=== PATIENT | male | born 1990 | race Caucasian/White ===

== ENCOUNTER 2020-07-11 10:50 | Outpatient (REF) | payer OTHER, SELFPAY ==
[2020-07-11 11:31] LABS: MANUAL DIFF FLAG NO
[2020-07-11 11:39] LABS: Basophils Percent Auto 0.7 % (0-2); Eosinophils Absolute Auto 0.1 X10*3/uL (0.0-0.4); Eosinophils Percent Auto 2.4 % (0-4); Hematocrit 43.7 % (42-52); Hemoglobin 15.5 g/dl (14.0-18.0); Imm Gran Abs Auto 0.01 X10*3/uL (0.00-0.03); Imm Gran Pct Auto 0.2 % (0.0-0.4); Lymphocytes Absolute Auto 2.1 X10*3/uL (1.2-4.9); Lymphocytes Percent Auto 36.2 % (20-40); Mean Corpuscular HGB Conc 35.5 g/dl (31.0-36.0); Mean Corpuscular Hemoglobin 31.6 pg (27.0-33.0); Mean Corpuscular Volume 89.2 fL (80-98); Monocytes Absolute Auto 0.7 X10*3/uL (0.1-1.2); Monocytes Percent Auto 11.3 % (2-11); Neutrophils Absolute Auto 2.9 X10*3/uL (2.0-8.3); Neutrophils Percent Auto 49.2 % (45-73); Platelet Count 233 X10*3/uL (160-400); Red Cell Distribution Width 11.9 % (11.0-16.0); White Blood Count 5.9 X10*3/uL (4.8-10.8)
[2020-07-11 12:01] LABS: Glucose Urine UA NEG (NEG); Leukocyte Esterase Urine NEG (NEG); Nitrite Urine NEG (NEG); Specific Gravity - Urine 1.015 (1.005-1.025); Urine Blood NEG (NEG); Urine Ketones NEG (NEG); Urine Protein NEG (NEG-TRACE)
[2020-07-11 12:03] LABS: Appearance Urine CLOUDY; Color Urine YELLOW
[2020-07-11 12:40] LABS: Alanine Aminotransferase 25 U/L (0-40); Albumin Level 4.3 g/dL (3.5-5.0); Alkaline Phosphatase 65 U/L (39-117); Anion Gap 12 (12-20); Aspartate Amino Transferase 39 U/L (5-37); Bilirubin Total 0.9 mg/dL (0.0-1.0); Blood Urea Nitrogen 18 mg/dL (9-16); Calcium 9.1 mg/dL (8.4-10.2); Carbon Dioxide 30 mmol/L (22-29); Chloride 102 mmol/L (96-108); Cholesterol 152 mg/dL; Estimated Glomerular Filt Rate > 60; Glucose Random 82 mg/dL (60-115); Potassium 4.3 mmol/l (3.3-5.1); Sodium 140 mmol/L (135-145); Total Protein 6.8 g/dL (6.5-8.0)
[2020-07-11 13:26] LABS: TSH reflex Free T4 1.12 mIU/mL (0.32-4.0)
== END 2020-07-11 10:51 | disposition home or self-care (01) ==
LOC: HO.LAB 10:50
PROVIDERS: PCP Internal Medicine; Visit Provider Internal Medicine
DX: Z00.00 Encounter for general adult medical examination without abnormal findings (principal); E66.3 Overweight
CPT/HCPCS: 36415; 80053; 81003; 82465; 84443; 85025

== ENCOUNTER 2020-07-14 15:04 | Outpatient (REF) | payer OTHER, SELFPAY | END 2020-07-14 15:05 | disposition home or self-care (01) | LOC: HO.LAB 15:04 | PROVIDERS: Visit Provider Internal Medicine | DX: Z20.822 Contact with and (suspected) exposure to COVID-19 (principal) | CPT/HCPCS: 36415; C9803; U0003 ==

== ENCOUNTER → 2020-08-28 10:56 | Outpatient (BNVA) | payer OTHER, SELFPAY | PROVIDERS: PCP Internal Medicine; Visit Provider Internal Medicine | DX: M54.2 Cervicalgia (principal) | CPT/HCPCS: 99203 ==

== ENCOUNTER 2020-09-01 07:16 | Outpatient (REF) | payer OTHER, SELFPAY ==
--- NOTE | ~2020-09-01 | MR_ITS ---
EXAMINATION: MR CERVICAL SPINE WITHOUT CONTRAST CLINICAL INFORMATION: Lifting injury with left cervical scapular pain COMPARISON: None TECHNIQUE: MRI of the cervical spine was obtained using routine sequences without contrast. FINDINGS: VERTEBRAL BODIES AND PARASPINAL SOFT TISSUES: Straightening of the normal cervical lordosis is noted and may be secondary to positioning during the examination. No vertebral body compression deformities or focal marrow abnormalities are visualized. The craniocervical junction cerebellar tonsils are normal in duration. CERVICOMEDULLARY JUNCTION AND VISUALIZED POSTERIOR FOSSA: Normal. SPINAL LEVELS: C2-C3: Normal. Normal intervertebral discs. No central or foraminal stenoses. C3-C4: All normal. No central or foraminal stenoses. C4-C5: Normal. C5-C6: Normal. C6-C7: Normal. No central foraminal stenoses. Normal intervertebral disc. C7-T1: Normal. No cervical ribs are identified. The visualized neck demonstrates no gross inflammatory changes or lymphadenopathy. No prevertebral soft tissue inflammatory changes or fluid collections are noted. No facet arthropathic changes are identified. MR/MR cervical spine wo con IMPRESSION: Straightening of the normal cervical lordosis of the cervical spine; otherwise, normal unenhanced MRI of the cervical spine. No central or foraminal stenoses. Normal intervertebral discs.
== END 2020-09-01 07:17 | disposition home or self-care (01) ==
LOC: HO.MRI 07:16
PROVIDERS: Visit Provider Internal Medicine
DX: M54.2 Cervicalgia (principal); M25.519 Pain in unspecified shoulder
CPT/HCPCS: 72141

== ENCOUNTER → 2020-09-04 10:33 | Outpatient (BNVA) | payer OTHER, SELFPAY | PROVIDERS: PCP Internal Medicine; Visit Provider Internal Medicine | DX: S16.1XXA Strain of muscle, fascia and tendon at neck level, initial encounter (principal); X58.XXXA Exposure to other specified factors, initial encounter | CPT/HCPCS: 99214 ==

== ENCOUNTER 2021-04-13 21:32 | Emergency (ER) | payer OTHER, SELFPAY ==
[2021-04-13 21:36] VITALS: BP 141/92; PULSE 88; RESP 20; TEMP 36.8; O2SAT 98; BMI 27.6
[2021-04-14 01:16] LABS: Basophils Absolute Auto 0.1 X10*3/uL (0.0-0.2); Basophils Percent Auto 0.6 % (0-2); Eosinophils Absolute Auto 0.3 X10*3/uL (0.0-0.4); Eosinophils Percent Auto 3.8 % (0-4); Hematocrit 43.5 % (42-52); Hemoglobin 15.8 g/dl (14.0-18.0); Imm Gran Abs Auto 0.03 X10*3/uL (0.00-0.03); Imm Gran Pct Auto 0.4 % (0.0-0.4); Lymphocytes Absolute Auto 3.4 X10*3/uL (1.2-4.9); Lymphocytes Percent Auto 43.3 % (20-40); MANUAL DIFF FLAG NO; Mean Corpuscular HGB Conc 36.3 g/dl (31.0-36.0); Mean Corpuscular Volume 88.1 fL (80-98); Mean Platelet Volume 9.7 fL (9.4-12.4); Monocytes Absolute Auto 0.9 X10*3/uL (0.1-1.2); Monocytes Percent Auto 10.9 % (2-11); Neutrophils Absolute Auto 3.2 X10*3/uL (2.0-8.3); Platelet Count 244 X10*3/uL (160-400); Red Blood Count 4.94 X10*6/uL (4.60-5.80); White Blood Count 7.9 X10*3/uL (4.8-10.8)
--- NOTE | 2021-04-14 01:17 | ED_ITS ---
HPI - GI Bleed General Chief complaint: GI Bleed Stated complaint: Rectum bleeding Time Seen by Provider: 04/14/21 01:16 Source: patient Mode of arrival: ambulatory Limitations: no limitations History of Present Illness HPI Narrative: 31-year-old male came in for evaluation of rectal bleed. Patient after passed flatus on the toilet start have right-sided abdominal cramps followed by bright red blood per rectum bleeding. One time, resolved now, no chest pain or shortness of breath. No abdominal pain now. Related Data Home Medications Medication Instructions Recorded Confirmed No Known Home Meds 07/11/20 07/11/20 Allergies Allergy/AdvReac Type Severity Reaction Status Date / Time pollen extracts [POLLEN] Allergy Mild RUNNY Verified 07/11/20 10:24 NOSE, IRRITATED EYES, SNEEZING Review of Systems Review of Systems: All other systems are reviewed and are negative Constitutional: Reports as per HPI and Reports no additional constitutional complaints Eyes: Reports as per HPI and Reports no additional eye complaints Reports system reviewed and no additional complaints, except as documented Cardiovascular: Reports as per HPI and Reports no additional cardiovascular complaints Respiratory: Reports as per HPI and Reports no additional respiratory complaints Gastrointestinal: Reports as per HPI and Reports no additional gastrointestinal complaints Genitourinary: Reports no additional female genitourinary complaints Musculoskeletal: Reports no additional musculoskeletal complaints Skin/Breast: Reports system reviewed and no additional complaints, except as docu Psychiatric: Reports no additional psychiatric complaints Endocrine: Reports no additional endocrine complaints Hematologic/Lymphatic: Reports no additional hematologic/lymphatic complaints Allergic/Immunologic: Reports no additional allergic/immunologic complaints Reports system reviewed and no additional complaints, except as documented and Reports Abnormal speech present [facility] Past Medical History Medical History Overweight (BMI 25.0-29.9) Right knee pain Surgical History History of vasectomy Family History Family History Father Stroke Mother Cancer Brother In good health Son In good health Daughter In good health Social History Social History Alcohol intake: current Alcohol intake frequency: holidays/special occasions only Advance Directives: No Advance Directives Information Provided: No Physical Exam Vital Signs: Vital Signs: Last Vital Signs Temp 98.3 F 04/13/21 21:36 Pulse 88 04/13/21 21:36 Resp 20 04/13/21 21:36 BP 141/92 H 04/13/21 21:36 Pulse Ox 98 04/13/21 21:36 Body Mass Index 27.6 Vital signs have been reviewed as appeared to be correct. Blood pressure no rmal. Heart rate normal. Respiration rate normal. Temperature normal. Oxygen saturation normal. Appearance: Alert. Oriented X3. No acute distress. Head: Normal external exam. Normocephalic. Atraumatic. No Rivera signs noted. No raccoon eyes noted Eyes: PERRLA. EOMI. Conjunctiva and sclera normal. Eyelids normal. ENT: TM's Normal. Pharynx normal. Uvula midline. Moist mucous membranes. No trismus noted. No drooling noted. No muffled voice noted. Neck: Normal inspection. Neck supple. FROM. No adenopathy. Thyroid Normal. No meningeal signs. No neck mass noted. CVS: Normal heart rate and rhythm. Heart sound normal. No murmurs noted. Pulses normal throughout. Respiratory: No respiratory distress. Painless inspiration. Breath sounds normal. No wheezes/rales/rhonchi noted. Chest nontender. No accessory muscle usage noted or decreased air movement noted. Abdomen: Soft and nontender. Bowel sounds normal in all 4 quadrants. No distention noted. No organomegaly noted. No visible injury noted. Rectal exam: Bright red blood per rectum. Back: No CVA tenderness. Full range of motion noted. Skin: Skin warm and dry. Normal skin color. Normal skin turgor. No rashes/lesions/lacerations noted. Extremities: No lower extremity edema. Extremities exhibit normal range of motion. Extremities nontender. Neuro: Oriented X 3. Cranial nerve exam: II-XII are grossly intact No motor deficit. No sensory deficit. Reflexes normal. Course Course Course Narrative: A 31-year-old male came in for bright red blood per rectum. Patient hemodynamically stable, hemoglobin is stable, patient was offered admission but he declined because he had to travel for a wedding, patient was instructed if the bleeding gets Anwer seek immediate medical attention. MDM - GI Bleed Lab Data Result diagrams: 04/14/21 01:12 04/14/21 01:12 Labs: Lab Results 04/14/21 04/14/21 Range/Units 01:12 01:19 WBC 7.9 (4.8-10.8) X10*3/uL RBC 4.94 (4.60-5.80) X10*6/uL Hgb 15.8 (14.0-18.0) g/dl Hct 43.5 (42-52) % MCV 88.1 (80-98) fL MCH 32.0 (27.0-33.0) pg MCHC 36.3 H (31.0-36.0) g/dl RDW 12.0 (11.0-16.0) % Plt Count 244 (160-400) X10*3/uL MPV 9.7 (9.4-12.4) fL Immature Gran % (Auto) 0.4 (0.0-0.4) % Neut % (Auto) 41.0 L (45-73) % Lymph % (Auto) 43.3 H (20-40) % [place] % (Auto) 10.9 (2-11) % Eos % (Auto) 3.8 (0-4) % Baso % (Auto) 0.6 (0-2) % Lymph # (Auto) 3.4 (1.2-4.9) X10*3/uL [place] # (Auto) 0.9 (0.1-1.2) X10*3/uL Eos # (Auto) 0.3 (0.0-0.4) X10*3/uL Baso # (Auto) 0.1 (0.0-0.2) X10*3/uL Abs Immat Gran (auto) 0.03 (0.00-0.03) X10*3/uL Absolute Neuts (auto) 3.2 (2.0-8.3) X10*3/uL Absolute Nucleated RBC 0.000 (0.0-0.012) X10*3/uL Nucleated RBC % (auto) 0.0 (0.0-0.2) /100WBC Stool Occult Blood POSITIVE (NEGATIVE) Discharge Plan Discharge Clinical Impression: Bright red rectal bleeding Patient Disposition: Home, Self-Care Instructions: Rectal Bleeding (ED) Prescriptions: No Action No Known Home Meds RF: 0 Referrals: Pj Fleming MD [Primary Care Provider] - 2 days Sheryl Medina MD [Physician] - 2 days
[2021-04-14 01:22] LABS: OBS Int Ctl Valid YES; OBS1 POSITIVE (NEGATIVE)
--- NOTE | 2021-04-14 01:38 | P.HPHOSP_ITS ---
History of Present Illness Date of Service: 04/14/21 Chief Complaint: Bright red blood per rectum 31-year-old male with no significant past medical history presented to the hospital with a chief complaint of bright red blood per rectum. Patient reported that he was sitting in the toilet and suddenly had a gush of blood; denies any nausea or vomiting. Followed by he felt abdominal cramps which lasted for few minutes and subsequently subsided. Denies taking [id number] pain medications. Denies any alcohol use. Denies any prior history of bleeds. Denies any history of hemorrhoids. Denies any chest pain palpitations lightheadedness or dizziness. Denies any urinary symptoms. Review of all other systems is negative except mentioned above ER course: Per ER team patient had another episode of bright red blood per rectum in the ER. Vitals stable; hemoglobin stable at 15; admitted to the hospital for fur ther management. PENDING SALE TO [facility] Medical History Overweight (BMI 25.0-29.9) Right knee pain Family History Father Stroke Mother Cancer Brother In good health Son In good health Daughter In good health Pertinent family history: As mentioned above Surgical History History of vasectomy Social History Alcohol intake: current Alcohol intake frequency: holidays/special occasions only Advance Directives: No Advance Directives Information Provided: No Meds Allergies Allergy/AdvReac Type Severity Reaction Status Date / Time pollen extracts [POLLEN] Allergy Mild RUNNY Verified 07/11/20 10:24 NOSE, IRRITATED EYES, SNEEZING Home Medications Medication Instructions Recorded Confirmed Last Taken Type No Known Home Meds 07/11/20 07/11/20 Unknown History Physical Exam Vital Signs and Narrative: Vital Signs: Last Vital Signs Temp 98.3 F 04/13/21 21:36 Pulse 88 04/13/21 21:36 Resp 20 04/13/21 21:36 BP 141/92 H 04/13/21 21:36 Pulse Ox 98 04/13/21 21:36 Body Mass Index 27.6 Gen: Appears be in no acute distress HEENT: NCAT, Moist mucosa. Pulmonary: Vesicular breath sounds, fair air entry CVS: Normal S1-S2 Abdomen: BS+, Soft, Nontender Extremities: Warm well perfused Neuro: Alert and awake. Results Labs CBC and Chem 7: 04/14/21 01:12 04/14/21 01:12 Labs: Laboratory Results - last 24 hr 04/14/21 04/14/21 01:12 01:19 MCV 88.1 MCH 32.0 MCHC 36.3 H RDW 12.0 Plt Count 244 MPV 9.7 Immature Gran % (Auto) 0.4 Neut % (Auto) 41.0 L Lymph % (Auto) 43.3 H [place] % (Auto) 10.9 Eos % (Auto) 3.8 Baso % (Auto) 0.6 Lymph # (Auto) 3.4 [place] # (Auto) 0.9 Eos # (Auto) 0.3 Baso # (Auto) 0.1 Abs Immat Gran (auto) 0.03 Absolute Neuts (auto) 3.2 Absolute Nucleated RBC 0.000 Nucleated RBC % (auto) 0.0 Stool Occult Blood POSITIVE Assessment and Plan (1) BRBPR (bright red blood per rectum): Status: Acute 31-year-old male with no significant past medical history presented to the hospital with a chief complaint of bright red blood per rectum. Bright red blood per rectum: Per ER physician on rectal examination patient did not have any hemorrhoids. Noted bright red blood in the rectal wall. Serial H&H IV PPI GI consult NPO Gentle IV fluids DVT prophylaxis: SCD boots Code status: Full code Quality Stroke Does the patient have a stroke diagnosis?: No VTE Prior VTE?: No VTE Risk Level:: Medical - low VTE Device Contraindication: N/A - Device Ordered VTE Drug Contraindication: Treatment Not Indicated
[2021-04-14 01:53] VITALS: BP 138/91; PULSE 75; RESP 16; TEMP 36.9; O2SAT 95
[2021-04-14 01:55] LABS: Alanine Aminotransferase 25 U/L (0-40); Albumin Level 4.4 g/dL (3.5-5.0); Alkaline Phosphatase 78 U/L (39-117); Anion Gap 13 (12-20); Aspartate Amino Transferase 38 U/L (5-37); Bilirubin Total 0.5 mg/dL (0.0-1.0); Blood Urea Nitrogen 16 mg/dL (9-16); Calcium 9.4 mg/dL (8.4-10.2); Carbon Dioxide 25 mmol/L (22-29); Chloride 104 mmol/L (96-108); Creatinine Clr Calc Pharmacy 108.2; Estimated Glomerular Filt Rate > 60; Glucose Random 102 mg/dL (60-115); Potassium 4.1 mmol/L (3.3-5.1); Sodium 138 mmol/L (135-145); Total Protein 7.5 g/dL (6.5-8.0)
--- NOTE | 2021-04-14 03:42 | PM.EVENT ---
Event Note Date of Service: 04/14/21 Event Note: ER wanted to admit the patient. Followed by the patient does not want to stay in the hospital and left against medical advice. ER physician has signed to AMA.
== END 2021-04-14 02:03 | disposition home or self-care (01) ==
PROVIDERS: Emergency Provider Emergency Medicine; PCP Internal Medicine
DX: K62.5 Hemorrhage of anus and rectum (principal)
CPT/HCPCS: 36415; 80053; 82272; 85025; 99283

== ENCOUNTER 2021-05-02 18:03 | Emergency (ER) | payer OTHER, SELFPAY ==
--- NOTE | ~2021-05-02 | CT_ITS ---
EXAMINATION: CT ABDOMEN AND PELVIS WITHOUT AND WITH CONTRAST CLINICAL INFORMATION: Lower GI bleed COMPARISON: CTA chest abdomen pelvis 11/29/2008 TECHNIQUE: Initially, noncontrast CT scan was performed through the entire abdomen and pelvis. Next, volumetric imaging was performed from the superior aspect of the liver through the pubic symphysis following administration of 80 mL of Omnipaque 350. Sagittal and coronal reformatted images were obtained on the technologist's workstation. This CT examination was performed using dose optimization techniques as appropriate, variously including the following: *Automated exposure control *Adjustment of mA and/or kV according to patient size (this includes techniques or standardized protocols for targeted exams where dose is matched to indication/reason for exam; i.e. extremities or head) *Use of iterative reconstruction technique DLP: 1456 mGy-cm FINDINGS: LUNG BASES: The visualized lung bases are unremarkable. LIVER, GALLBLADDER, AND BILIARY TREE: The liver is normal in size, shape, and attenuation. No focal hepatic lesion or biliary ductal dilatation is present. The gallbladder is unremarkable with no evidence of radiopaque gallstones, gallbladder wall thickening, or obvious pericholecystic inflammatory changes. PANCREAS: Unremarkable. SPLEEN: Unremarkable. ADRENAL GLANDS: Unremarkable. KIDNEYS AND URETERS: The kidneys are normal in size, shape, and attenuation. No hydronephrosis, hydroureter, or calculi seen. No perinephric stranding. BLADDER: Unremarkable. GASTROINTESTINAL TRACT: Scattered colonic diverticula are seen without diverticulitis. The small and large bowel are otherwise unremarkable. The appendix is unremarkable. There is no evidence of a GI bleed and no extravasation of contrast is seen. ABDOMINAL WALL: No significant hernia is appreciated. Tiny periumbilical hernia seen containing only fat. LYMPH NODES: Normal. VASCULAR: Unremarkable. PELVIC VISCERA: Prostate and seminal vesicles appear normal OSSEOUS STRUCTURES: Unremarkable. CT/CT gi bleed abd pel wo/w con IMPRESSION: 1. No evidence of active GI bleed. 2. Incidental note made of colonic diverticula without diverticulitis.
[2021-05-02 18:41] VITALS: BP 147/84; PULSE 87; RESP 18; TEMP 37.3; O2SAT 98; BMI 28.2
[2021-05-02 19:46] VITALS: BP 136/79; PULSE 84; RESP 18; TEMP 36.1; O2SAT 98
[2021-05-02 19:58] LABS: MANUAL DIFF FLAG NO
[2021-05-02 19:59] LABS: Basophils Percent Auto 0.4 % (0-2); Eosinophils Absolute Auto 0.1 X10*3/uL (0.0-0.4); Eosinophils Percent Auto 1.7 % (0-4); Hematocrit 40.7 % (42.0-52.0); Imm Gran Abs Auto 0.02 X10*3/uL (0.00-0.03); Imm Gran Pct Auto 0.2 % (0.0-0.4); Lymphocytes Absolute Auto 2.1 X10*3/uL (1.2-4.9); Mean Corpuscular HGB Conc 36.9 g/dl (31.0-36.0); Mean Corpuscular Hemoglobin 31.9 pg (27.0-33.0); Mean Corpuscular Volume 86.6 fL (80.0-98.0); Mean Platelet Volume 9.2 fL (9.4-12.4); Monocytes Absolute Auto 0.8 X10*3/uL (0.1-1.2); Monocytes Percent Auto 9.4 % (2-11); Neutrophils Percent Auto 62.3 % (45-73); Platelet Count 213 X10*3/uL (160-400); Red Cell Distribution Width 11.9 % (11.0-16.0)
--- NOTE | 2021-05-02 20:01 | ED.GIBLEED ---
HPI - GI Bleed General Chief complaint: GI Bleed Stated complaint: gi bleed Time Seen by Provider: 05/02/21 19:38 Source: patient Mode of arrival: ambulatory Limitations: no limitations History of Present Illness HPI Narrative: 31-year-old male presents to the ER for evaluation of blood in his stool that he noticed today. He reports he has brown stool that is streaked with blood about 4 5 episodes today. His 1st bowel movement of the day was normal with no blood but he developed the bleeding later in the day. He also had some associated lower abdominal cramping that is now resolved. He has had no nausea or vomiting. He denies any melena. He reports a history of similar episodes at the end of March when he was seen here. He has been unable to follow-up with GI as recommended due to his heavy work schedule. 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 He denies any sick contacts or potential food-borne illness exposure. He denies any fever or chills. MD complaint: blood streaked stool Onset (ago): day(s) Pain Consistency: intermittent Severity: moderate Relieving factors: bowel movement Exacerbating factors: none Context: history of GI bleed Associated symptoms: abdominal pain Treatments Prior to Arrival: none Related Data Home Medications Medication Instructions Recorded Confirmed No Known Home Meds 07/11/20 07/11/20 Allergies Allergy/AdvReac Type Severity Reaction Status Date / Time pollen extracts [POLLEN] Allergy Mild RUNNY Verified 07/11/20 10:24 NOSE, IRRITATED EYES, SNEEZING Review of Systems Review of Systems: Constitutional: No Fever, No Chills ENT/Mouth: No sore throat, No Rhinorrhea, No Swallowing Difficulty Cardiovascular: No Chest Pain, No SOB, No Orthopnea, No Edema Respiratory: No Cough, No Sputum, No Wheezing, No dyspnea Gastrointestinal: No Nausea, No Vomiting, No Diarrhea, + abdominal Pain, + Hematochezia, No Melena Genitourinary: No Dysuria, No Urinary Frequency, No Hematuria Musculoskeletal: No joint pain, No Myalgias Skin: No Skin Lesions, No rash Neuro: No Weakness, No Numbness, No Dizziness, No Headache Psych: + Anxiety/Panic, No Depression Heme/Lymph: No Bruising, No Lymphadenopathy Endocrine: No Polyuria, No Polydipsia PMFSH Past Medical History Medical History Overweight (BMI 25.0-29.9) Right knee pain Surgical History History of vasectomy Family History Family History Father Stroke Mother Cancer Brother In good health Son In good health Daughter In good health Social History Social History Alcohol intake: current Alcohol intake frequency: holidays/special occasions only Advance Directives: No Advance Directives Information Provided: Yes Physical Exam Vital Signs: Vital Signs: Last Vital Signs Temp 97.8 F 05/02/21 22:13 Pulse 66 05/02/21 22:13 Resp 16 05/02/21 22:13 BP 131/68 05/02/21 22:13 Pulse Ox 98 05/02/21 22:13 Body Mass Index 28.2 Appearance: Alert. Oriented X3. No acute distress. Eyes: Pupils equal, round and reactive to light. ENT: Pharynx normal. Neck: Normal inspection. Neck supple. CVS: Normal heart rate and rhythm. Pulses normal. Respiratory: No respiratory distress. Breath sounds normal. Abdomen: Soft and nontender. +BS x4 PHILIP: Normal external inspection, normal rectal tone, no palpable hemorrhoids, small amount of light brown stool on glove. Skin: Skin warm and dry. Normal skin color. Normal skin turgor. No rashes. Extremities: No lower extremity edema. Neuro: Oriented X 3. No motor deficit. No sensory deficit. Course Course Course Narrative: 31-year-old male presenting to the ER for evaluation blood-streaked stool that started today. He reports 4-5 episodes but denies any lightheadedness, dizziness, chest pain, shortness of breath. He had a history of a similar episode almost a month ago. He is not tachycardic and his abdominal exam is benign. He is not on anticoagulation. He is in a alcohol use, NSAID use. Clinical presentation is consistent with a lower GI bleed. Will get repeat blood workup and plan for CT scan of the abdomen with GI bleed protocol for further evaluation. He reports he just had 1 bloody BM in the bathroom. No associated dizziness. Reevaluation(s) Reevaluation #1: H&H is stable from prior. He has had no further bloody bowel movements in the 4 hours he has been in the emergency department. He feels well. He is eating popcorn with his girlfriend. His CT scan did not show any active bleeding. It did show colonic diverticulosis. We discussed the diagnosis and management. We discussed need to follow up with GI doctor. He is comfortable with discharge home with supportive care and planned follow-up with GI. He plans to return back to the ER if any bleeding worsens or if he develops signs or symptoms of acute blood loss anemia. Stable for DC home MDM - GI Bleed Lab Data Result diagrams: 05/02/21 19:51 05/02/21 19:51 Labs: Lab Results 05/02/21 05/02/21 05/02/21 Range/Units 19:51 19:51 19:51 WBC 8.0 (4.8-10.8) X10*3/uL RBC 4.70 (4.60-5.80) X10*6/uL Hgb 15.0 (14.0-18.0) g/dl Hct 40.7 L (42.0-52.0) % MCV 86.6 (80.0-98.0) fL MCH 31.9 (27.0-33.0) pg MCHC 36.9 H (31.0-36.0) g/dl RDW 11.9 (11.0-16.0) % Plt Count 213 (160-400) X10*3/uL MPV 9.2 L (9.4-12.4) fL Immature Gran % (Auto) 0.2 (0.0-0.4) % Neut % (Auto) 62.3 (45-73) % Lymph % (Auto) 26.0 (20-40) % [place] % (Auto) 9.4 (2-11) % Eos % (Auto) 1.7 (0-4) % Baso % (Auto) 0.4 (0-2) % Lymph # (Auto) 2.1 (1.2-4.9) X10*3/uL [place] # (Auto) 0.8 (0.1-1.2) X10*3/uL Eos # (Auto) 0.1 (0.0-0.4) X10*3/uL Baso # (Auto) 0.0 (0.0-0.2) X10*3/uL Abs Immat Gran (auto) 0.02 (0.00-0.03) X10*3/uL Absolute Neuts (auto) 5.0 (2.0-8.3) x10*3/uL Absolute Nucleated RBC 0.000 (0.0-0.012) X10*3/uL Nucleated RBC % (auto) 0.0 (0.0-0.2) /100WBC PT 11.7 (9.9-13.0) SEC INR 1.0 (0.9-1.1) APTT 29.2 (24.1-38.0) SEC Sodium 138 (135-145) mmol/L Potassium 3.8 (3.3-5.1) mmol/L Chloride 105 (96-108) mmol/L Carbon Dioxide 26 (22-29) mmol/L Anion Gap 11 L (12-20) BUN 15 (9-16) mg/dL Creatinine 1.20 (0.5-1.4) mg/dL Estim Creat Clear Calc 113.6 Estimated GFR > 60 Random Glucose 93 (60-115) mg/dL Calcium 9.1 (8.4-10.2) mg/dL Magnesium 2.0 (1.6-2.6) mg/dL Total Bilirubin 0.6 (0.0-1.0) mg/dL Direct Bilirubin 0.2 (0.0-0.5) mg/dL AST 39 H (5-37) U/L ALT 26 (0-40) U/L Alkaline Phosphatase 72 (39-117) U/L Total Protein 6.7 (6.5-8.0) g/dL Albumin 4.2 (3.5-5.0) g/dL Urine Color Urine Appearance Urine pH (5.0-8.0) Ur Specific [place] (1.005-1.025) Urine Protein (NEG-TRACE) MG/DL Urine Glucose (UA) (NEG) MG/DL Urine Ketones (NEG) MG/DL Urine Blood (NEG) Urine Nitrite (NEG) Ur Leukocyte Esterase (NEG) Stool Occult Blood (NEGATIVE) COVID-19 ([facility]) (Negative) COVID-19 Clin Com 05/02/21 05/02/21 05/02/21 Range/Units 19:51 20:00 20:17 WBC (4.8-10.8) X10*3/uL RBC (4.60-5.80) X10*6/uL Hgb (14.0-18.0) g/dl Hct (42.0-52.0) % MCV (80.0-98.0) fL MCH (27.0-33.0) pg MCHC (31.0-36.0) g/dl RDW (11.0-16.0) % Plt Count (160-400) X10*3/uL MPV (9.4-12.4) fL Immature Gran % (Auto) (0.0-0.4) % Neut % (Auto) (45-73) % Lymph % (Auto) (20-40) % [place] % (Auto) (2-11) % Eos % (Auto) (0-4) % Baso % (Auto) (0-2) % Lymph # (Auto) (1.2-4.9) X10*3/uL [place] # (Auto) (0.1-1.2) X10*3/uL Eos # (Auto) (0.0-0.4) X10*3/uL Baso # (Auto) (0.0-0.2) X10*3/uL Abs Immat Gran (auto) (0.00-0.03) X10*3/uL Absolute Neuts (auto) (2.0-8.3) x10*3/uL Absolute Nucleated RBC (0.0-0.012) X10*3/uL Nucleated RBC % (auto) (0.0-0.2) /100WBC PT (9.9-13.0) SEC INR (0.9-1.1) APTT (24.1-38.0) SEC Sodium (135-145) mmol/L Potassium (3.3-5.1) mmol/L Chloride (96-108) mmol/L Carbon Dioxide (22-29) mmol/L Anion Gap (12-20) BUN (9-16) mg/dL Creatinine (0.5-1.4) mg/dL Estim Creat Clear Calc Estimated GFR Random Glucose (60-115) mg/dL Calcium (8.4-10.2) mg/dL Magnesium (1.6-2.6) mg/dL Total Bilirubin (0.0-1.0) mg/dL Direct Bilirubin (0.0-0.5) mg/dL AST (5-37) U/L ALT (0-40) U/L Alkaline Phosphatase (39-117) U/L Total Protein (6.5-8.0) g/dL Albumin (3.5-5.0) g/dL Urine Color STRAW Urine Appearance CLEAR Urine pH 7.0 (5.0-8.0) Ur Specific [place] <= 1.005 (1.005-1.025) Urine Protein NEG (NEG-TRACE) MG/DL Urine Glucose (UA) NEG (NEG) MG/DL Urine Ketones NEG (NEG) MG/DL Urine Blood NEG (NEG) Urine Nitrite NEG (NEG) Ur Leukocyte Esterase NEG (NEG) Stool Occult Blood POSITIVE (NEGATIVE) COVID-19 ([place]) Negative (Negative) COVID-19 Clin Com See Note Critical Care Time Critical Care Time Critical Care Time: No Discharge Plan Discharge Clinical Impression: Acute lower GI bleeding, Diverticulosis Patient Disposition: Home, Self-Care Instructions: Gastrointestinal Bleeding (ED), Diverticulosis (ED) Additional Instructions: Your lab workup today showed stable blood counts Your CT scan showed diverticulosis of your colon, this is most likely what is causing the bleeding. It is usually self-limited. You need to follow-up with GI, name and number below. Stick to a bland diet. Rest and stay hydrated. If you develop worsening bleeding, or develop abdominal pain, lightheadedness, dizziness, shortness of breath, chest pain or any other concerning symptoms come back to the ER for further evaluation. Prescriptions: No Action No Known Home Meds RF: 0 Referrals: Chencho Helton [Physician] - 2 days (LGIB, diverticulosis) Stand Alone Forms: Work/School Release Discharge Date/Time: 05/02/21 22:50
[2021-05-02 20:06] LABS: Prothrombin Time 11.7 SEC (9.9-13.0)
[2021-05-02 20:08] LABS: Partial Thromboplastin Time 29.2 SEC (24.1-38.0)
[2021-05-02 20:13] LABS: COVID-19 Test Negative (Negative)
[2021-05-02 20:15] LABS: Alanine Aminotransferase 26 U/L (0-40); Albumin Level 4.2 g/dL (3.5-5.0); Alkaline Phosphatase 72 U/L (39-117); Anion Gap 11 (12-20); Aspartate Amino Transferase 39 U/L (5-37); Bilirubin Direct 0.2 mg/dL (0.0-0.5); Bilirubin Total 0.6 mg/dL (0.0-1.0); Blood Urea Nitrogen 15 mg/dL (9-16); Calcium 9.1 mg/dL (8.4-10.2); Carbon Dioxide 26 mmol/L (22-29); Chloride 105 mmol/L (96-108); Creatinine Clr Calc Pharmacy 113.6; Estimated Glomerular Filt Rate > 60; Glucose Random 93 mg/dL (60-115); Potassium 3.8 mmol/L (3.3-5.1); Sodium 138 mmol/L (135-145); Total Protein 6.7 g/dL (6.5-8.0)
[2021-05-02 20:15] LABS: Appearance Urine CLEAR; Color Urine STRAW; Glucose Urine UA NEG (NEG); Leukocyte Esterase Urine NEG (NEG); Nitrite Urine NEG (NEG); Specific Gravity - Urine <= 1.005 (1.005-1.025); Urine Blood NEG (NEG); Urine Ketones NEG (NEG); Urine Protein NEG (NEG-TRACE)
[2021-05-02 20:27] LABS: OBS Int Ctl Valid YES; OBS1 POSITIVE (NEGATIVE)
[2021-05-02] MEDS: iohexoL 350 MG/ML 100 ML INFUS..BTL IV (21:30)
[2021-05-02 22:13] VITALS: BP 131/68; PULSE 66; RESP 16; TEMP 36.6; O2SAT 98
== END 2021-05-02 22:50 | disposition home or self-care (01) ==
PROVIDERS: Physician Assistant; Emergency Provider Emergency Medicine; PCP Internal Medicine
DX: K57.31 Diverticulosis of large intestine without perforation or abscess with bleeding (principal); Z20.822 Contact with and (suspected) exposure to COVID-19
CPT/HCPCS: 36415; 74178; 80048; 80076; 81003; 82272; 83735; 85025; 85610; 85730; 87635; 99283; 99284; Q9967

== ENCOUNTER → 2021-05-15 12:00 | Outpatient (BNVA) | payer OTHER, SELFPAY | PROVIDERS: PCP Internal Medicine; Referring Provider Internal Medicine; Visit Provider Internal Medicine Gastroenterology ==

== ENCOUNTER 2021-06-07 10:32 | Day surgery (SDC) | payer OTHER, SELFPAY ==
--- NOTE | 2021-06-06 10:31 | HO.ANESPROP2 ---
Documented by User: Aleshia Flowers NP 06/06/21 10:32 HPI - Anesthesia Eval Consult details Narrative: 31yo M for Colonoscopy [facility] Active Problems Active Problems: All Active Problems (Updated 05/03/21 @ 00:03 by Bulmaro Esteban) Recurrent gastrointestinal hemorrhage (Acute) BRBPR (bright red blood per rectum) (Acute) Right knee pain (Acute) Overweight (BMI 25.0-29.9) (Acute) Annual physical exam (Acute) Past Medical History Medical History Overweight (BMI 25.0-29.9) Right knee pain Family History Family History Father Stroke Mother Cancer Brother In good health Son In good health Daughter In good health Surgical History Surgical History History of vasectomy Social History Social History Alcohol intake: current Alcohol intake frequency: holidays/special occasions only Patient Tobacco Use Status: Former Tobacco user Use of substances other than those prescribed or required for medical reasons: No Are you DNR?: No Advance Directives: No Advance Directives Information Provided: Yes Meds Allergies Allergy/AdvReac Type Severity Reaction Status Date / Time pollen extracts [POLLEN] Allergy Mild RUNNY Verified 05/31/21 14:53 NOSE, IRRITATED EYES, SNEEZING Exam Exam Date and Time: June 06, 2021 1031 Pertinent Lab Results Pertinent Lab Results: Laboratory Tests 05/02/21 05/02/21 19:51 19:51 WBC 8.0 Hgb 15.0 Hct 40.7 L Plt Count 213 Sodium 138 Potassium 3.8 Chloride 105 Carbon Dioxide 26 BUN 15 Creatinine 1.20 Assessment and Plan Assessment Anesthesia Assessment: Chart Reviewed Documented by User: Delonte Early 06/07/21 12:30 [facility] Past Medical History Medical History Overweight (BMI 25.0-29.9) Right knee pain Functional capacity: independent ambulation Family History Family History Father Stroke Mother Cancer Brother In good health Son In good health Daughter In good health Family history of problems with anesthesia: Unobtainable Surgical History Surgical History History of vasectomy History of Problems with Anesthesia: No Social History Social History Alcohol intake: current Alcohol intake frequency: holidays/special occasions only Patient Tobacco Use Status: Former Tobacco user Use of substances other than those prescribed or required for medical reasons: No Are you DNR?: No Advance Directives: No Advance Directives Information Provided: Yes Meds Allergies Allergy/AdvReac Type Severity Reaction Status Date / Time pollen extracts [POLLEN] Allergy Mild RUNNY Verified 05/31/21 14:53 NOSE, IRRITATED EYES, SNEEZING Exam Airway Mallampati Class: II TM Dist: >3cm Neck ROM: Full Loose/Missing/Broken Teeth: Yes (Fillings ) Heart: rrr Lungs: bl breath sounds Assessment and Plan Final Anesthetic Review Family History of Problems with Anesthesia: Unobtainable History of Problems with Anesthesia: No NPO: Yes ASA Class: I Final Preanesthetic Review: Anes Risks/Benef Reviewed Patient Risk: Intermediate Procedure Risk: Intermediate Anesthetic Plan Anesthetic Plan: MAC: Disposition: Standard PACU
[2021-06-07 11:13] VITALS: BP 128/78; PULSE 65; RESP 16; TEMP 36.6; O2SAT 97; BMI 27.6
--- NOTE | 2021-06-07 12:59 | P.BOP_ITS ---
Brief Operative Note Date of Service: 06/07/21 Pre-op diagnosis: rectal bleeding Post-op diagnosis: same Procedure: see op note Surgeon: Sheryl Medina MD Anesthesia: MAC Was an [employer] Observer used for this Procedure?: No Estimated blood loss (mL): 0 Condition: stable Disposition: PACU
--- NOTE | 2021-06-07 12:59 | MHC.SHP ---
Pre-Procedural Eval Section A Date of Service: 06/07/21 The patient is an INPATIENT: No The History & Physical has been completed within 30 days and I have reviewed it.: Yes Section B Chief Complaint: Gastrointestinal hemorrhage Allergies: Allergies Allergy/AdvReac Type Severity Reaction Status Date / Time pollen extracts [POLLEN] Allergy Mild RUNNY Verified 05/31/21 14:53 NOSE, IRRITATED EYES, SNEEZING Plan Diagnosis/Plan: Unchanged I have reviewed the history and physical and performed a pertinent physical examination on my patient. No changes have occurred unless specified.
--- NOTE | 2021-06-07 13:00 | W.PM.OPN ---
Operative Note Operative Note Date of Service: 06/07/21 Narrative: Operative Information Procedure Description: Colonoscopy COLONOSCOPY Instrument: Olympus variable stiffness pediatric scope 190L Colonoscopy Monitoring: Vital signs and clinical assessment, continuous EKG monitoring, Pulse oximetry, Carbon Dioxide monitoring and blood pressure monitoring were done throughout the procedure. Colon withdrawal time was 8 minutes. Procedure: The patient was placed in the left lateral decubitis position and pre-procedure medications were administered. After a digital rectal examination of the ano-rectum, the video colonoscope was inserted into the rectum and advanced through the colon to the cecum/TI. The colonoscope was slowly withdrawn in a retrograde panoramic fashion and the colon mucosa was carefully examined including a retroflexed view of the rectum. Findings and interventions are described below. Procedure Difficulty: easy Findings: Terminal Ileum-normal Cecum:normal Ascending Colon: normal Transverse Colon -normal Descending Colon:normal Sigmoid Colon: normal Rectum: Retroflexion with small internal hemorrhoids, grade I Anorectum - normal Colon preparation: [place] Bowel Preparation Scale Right colon; 3 Transverse colon: 3 Left colon; 3 (0 = Unprepared colon segment with mucosa not seen due to solid stool that cannot be cleared. 1 = Portion of mucosa of the colon segment seen, but other areas of the colon segment not well seen due to staining, residual stool and/or opaque liquid. 2 = Minor amount of residual staining, small fragments of stool and/or opaque liquid, but mucosa of colon segment seen well. 3 = Entire mucosa of colon segment seen well with no residual staining, small fragments of stool or opaque liquid) Impression and Post Procedure Diagnosis: internal hemorrhoids Plan: High fiber diet leaflet Avoid straining at stool, epsom salts and sitz bath, anusol supps or cream Repeat Colonoscopy aged 45 or earlier if clinically indicated Above findings were reviewed with the patient and relevant handouts were provided if indicated.
[2021-06-07 13:40] VITALS: BP 113/66; PULSE 75; RESP 16; TEMP 36.3
[2021-06-07 13:54] VITALS: BP 118/76; PULSE 69; RESP 16; O2SAT 97
== END 2021-06-07 14:19 | disposition home or self-care (01) ==
PROVIDERS: PCP Internal Medicine; Visit Provider Internal Medicine Gastroenterology
PROC: 0DJD8ZZ Inspection of Lower Intestinal Tract, Via Natural or Artificial Opening Endoscopic (ICD-10-PCS; CPT 45378; principal; 2021-06-07 12:10)
DX: K62.5 Hemorrhage of anus and rectum (principal); K57.30 Diverticulosis of large intestine without perforation or abscess without bleeding; K64.0 First degree hemorrhoids
CPT/HCPCS: 45378

== ENCOUNTER 2021-07-09 07:50 | Outpatient (REF) | payer OTHER, SELFPAY ==
[2021-07-09 09:37] LABS: Binax Internal Control QC Valid; Binax Now Covid-19 Ag Negative (Negative)
== END 2021-07-09 07:51 | disposition home or self-care (01) ==
LOC: HO.LAB 07:50
PROVIDERS: Visit Provider Internal Medicine
DX: Z20.822 Contact with and (suspected) exposure to COVID-19 (principal)
CPT/HCPCS: C9803

== ENCOUNTER 2021-07-10 10:03 | Outpatient (REF) | payer OTHER, SELFPAY ==
[2021-07-11 14:57] LABS: H Pylori Breath Test Negative (Negative)
== END 2021-07-10 10:04 | disposition home or self-care (01) ==
LOC: HO.LNP 10:03
PROVIDERS: PCP Internal Medicine; Referring Provider Internal Medicine; Visit Provider Internal Medicine Gastroenterology
DX: R12 Heartburn (principal); Z79.899 Other long term (current) drug therapy
CPT/HCPCS: 83013

== ENCOUNTER 2022-02-11 09:05 | Emergency (ER) | payer OTHER, SELFPAY ==
--- NOTE | ~2022-02-11 | US_ITS ---
EXAMINATION: US VENOUS ULTRASOUND WITH DOPPLER LOWER EXTREMITY, LEFT CLINICAL INFORMATION: Left calf pain. COMPARISON: None TECHNIQUE: Ultrasound of the deep veins is performed from the hip to the calf with compression sonography and color and pulse Doppler assessment. Spectral analysis with color-flow imaging is performed. FINDINGS: There is normal venous compression and respiratory variation and augmented flow. The visualized common femoral vein, superficial femoral vein, profunda femoral vein, popliteal vein, and the trifurcation region shows no evidence of deep venous thrombosis. There is no significant popliteal fossa cyst. If the patient's symptoms persist, followup ultrasound in 5 days 7 days might be of value to exclude proximal propagation from a non-visualized calf vein. US/US venous duplex LE LT IMPRESSION: No DVT demonstrated in the left lower extremity.
--- NOTE | 2022-02-11 09:24 | ED.GENADULT ---
HPI - General Adult General Chief complaint: Extremity Problem Stated complaint: L calf pain/R hamstring pain Time Seen by Provider: 02/11/22 09:24 Source: patient Mode of arrival: ambulatory Limitations: no limitations History of Present Illness HPI narrative: Patient is a 32 year old male presenting to the emergency department today with left calf pain and right thigh pain. Patient states that over the last 2 weeks he has been having random lower extremity pain that seems to come on out of nowhere. Patient states that he had COVID-19 in December but it was a mild case. Patient states that he also had a rash on his lower legs that looked like he had been bitten by fleas but then it quickly went away. Patient states that he has had lab work done and a tick panel that is still pending but the rest of his lab work was unremarkable. Patient states that he works for the [employer] department and when he goes up a flight of stairs, he feels very winded. Patient denies any dizziness, lightheadedness, abdominal pain, nausea, vomiting, fever, chills, blurry vision, double vision, loss of vision, chest pain, difficulty breathing, shortness of breath, back pain, night sweats, pain with urination, increased urinary frequency, increased urinary urgency, blood in his urine or stool, syncope or a near syncopal episode, recent trauma or falls, bowel incontinence, bladder incontinence, bowel retention, bladder retention, or any other complaints at this time. Onset (ago): week(s) (2) Location: lower extremity (left calf, right thigh) Severity: mild Severity scale (1-10): 2 Quality: aching Pain Consistency: intermittent Relieving factors: none Exacerbating factors: none Associated symptoms: rash (came on and resolved) Treatments prior to arrival: none Related Data Home Medications Medication Instructions Recorded Confirmed multivitamin 1 tab PO DAILY 07/16/21 07/16/21 Previous Rx's Medication Instructions Recorded pantoprazole 40 mg tablet,delayed 40 mg PO DAILY #60 tabs 01/28/22 release Allergies Allergy/AdvReac Type Severity Reaction Status Date / Time pollen extracts [POLLEN] Allergy Mild RUNNY Verified 07/16/21 10:44 NOSE, IRRITATED EYES, SNEEZING Review of Systems Constitutional: Constitutional: Reports no additional constitutional complaints, Denies chills, Denies fever(s) and Denies night sweats Eyes: Eyes: Reports no additional eye complaints, Denies blurry vision, Denies change in vision, Denies diplopia, Denies eye discharge, Denies loss of vision and Denies eye pain ENT: Denies dizziness Cardiovascular: Cardiovascular: Reports no additional cardiovascular complaints, Denies chest pain, Denies lightheadedness, Denies Loss of Consciousness and Denies dyspnea Respiratory: Respiratory: Reports no additional respiratory complaints and Denies dyspnea Gastrointestinal: Gastrointestinal: Reports no additional gastrointestinal complaints, Denies abdominal pain, Denies melena, Denies hematochezia, Denies change in bowel habits and Denies change in stool character Genitourinary: Genitourinary: Reports no additional male genitourinary complaints, Denies hematuria, Denies oliguria, Denies difficulty urinating, Denies dysuria, Denies urinary frequency, Denies urinary hesitancy, Denies urinary incontinence and Denies urinary urgency Musculoskeletal: Musculoskeletal: Reports no additional musculoskeletal complaints, Denies numbness and Denies tingling Comments: left calf pain, right thigh pain Integumentary/Breasts: Comments: rash that came on to lower extremities and subsequently resolved Neurologic: Denies dizziness, Denies loss of vision, Denies numbness and Denies tingling Psychiatric: Psychiatric: Reports no additional psychiatric complaints Endocrine: Endocrine: Reports no additional endocrine complaints Hematologic/Lymphatic: Hematologic/Lymphatic: Reports no additional hematologic/lymphatic complaints Allergic/Immunologic: Allergic/Immunologic: Reports no additional allergic/immunologic complaints [facility] Past Medical History Attestation statement: The following information was validated with the patient. Source: old records reviewed Medical History GERD (gastroesophageal reflux disease) Internal hemorrhoids Overweight (BMI 25.0-29.9) Right knee pain Surgical History History of vasectomy Hx of colonoscopy (~06/07/21) Family History Family History Father Stroke Mother Cancer Brother In good health Son In good health Daughter In good health Social History Social History Housing: House Alcohol intake: current Alcohol intake frequency: holidays/special occasions only Patient Tobacco Use Status: Former Tobacco user Second Hand Smoke Exposure: Yes Advance Directives: No Advance Directives Information Provided: Yes service: No Current occupational status: employed Physical Exam ED Vital Signs: Vital Signs - 24 hr 02/11/22 11:41 Temperature 98.1 F Pulse Rate 62 Respiratory Rate 18 Blood Pressure 137/79 Pulse Oximetry 98 Oxygen Delivery Method Room Air BMI result Body Mass Index 25.1 Const General: cooperative, no acute distress, alert and awake Nutritional Appearance: well nourished Orientation/consciousness: patient oriented x3 Limitations: no limitations HENMT Head: Yes normal to inspection and Yes atraumatic Ears: hearing grossly normal bilaterally and external ears normal General nose exam: Normal external nose present, no nasal discharge noted and no epistaxis Face and sinus: Yes normal facial exam, No abrasion and No laceration Mouth: Normal oral and palatal mucosa present, no drooling and no muffled voice Eyes General: appearance normal, both eyes and all related structures Periorbital: periorbital findings normal Eyelids: Yes eyelids normal Conjunctivae: conjunctivae normal Pupils: Equal, round and reactive pupils present EOM: EOMs intact bilaterally Neck Neck: Yes normal visual inspection, Yes full ROM and Yes no lymphadenopathy Chest Chest palpation & inspection: normal inspection of the chest Resp Effort & Inspection: normal respiratory effort and able to speak in complete sentences Auscultation: clear to auscultation bilaterally Cardio Rate: regular rate Rhythm: regular rhythm GI Inspection: Yes normal to inspection Neuro General: patient oriented x3 and moves all extremities Cranial nerves: Yes Equal, round and reactive pupils present Cognition (Neuro): normal cognition Motor exam (neuro): 5/5 motor strength present throughout Sensory Exam: Normal double simultaneous stimulation for sensation Coordination: [id number] test normal Extrem General: Yes normal to inspection, Yes full ROM and Yes capillary refill normal Psych Appearance: grossly normal Mental Status: mental status grossly normal Affect: normal affect Attitude: cooperative Thought process: Normal thought process present Thought content: Normal thought content present Insight: Good insight present (Psych) Medical Decision Making MDM Narrative Medical decision making narrative: Patient is a 32 year old male presenting to the emergency department today with left calf and right thigh pain. Patient's physical exam was unremarkable. Patient's blood work showed a slightly elevated potassium but was otherwise unremarkable. Patient's left lower leg ultrasound showed no acute process. I explained my physical exam findings as well as all test results to the patient. I answered all questions asked by the patient. I showed the patient pictures of a COVID-19 rash and he confirmed that it appeared as though that was the rash he had that resolved. I explained to the patient that the rash coupled with his chronic fatigue, chronic myalgia, and negative work up lead me to believe the patient is suffering from long haul COVID. I stressed the importance of the patient taking his medication as prescribed. I stressed the importance of the patient following up with his primary care provider. I stressed the importance of the patient returning to the emergency department immediately if his symptoms were to worsen or if he were to develop any dizziness, shortness of breath, difficulty breathing, chest pain, blurry vision, loss of vision, nausea, vomiting, abdominal pain, fever, chills, back pain, or any other complaints. Patient verbalized agreement and understanding with this treatment plan and discharge. Differential Diagnosis Differential Diagnosis: long COVID Medical Records Medical records reviewed: Yes I reviewed the patient's medical records. Lab Data Lab results reviewed: Yes I reviewed the patient's lab results. Result diagrams: 02/11/22 11:04 02/11/22 11:04 Labs: Lab Results 02/11/22 02/11/22 02/11/22 Range/Units 11:03 11:04 11:04 WBC 5.0 (4.8-10.8) X10*3/uL RBC 5.20 (4.60-5.80) X10*6/uL Hgb 16.2 (14.0-18.0) g/dl Hct 45.0 (42.0-52.0) % MCV 86.5 (80.0-98.0) fL MCH 31.2 (27.0-33.0) pg MCHC 36.0 (31.0-36.0) g/dl RDW 12.1 (11.0-16.0) % Plt Count 244 (160-400) X10*3/uL MPV 9.5 (9.4-12.4) fL Immature Gran % (Auto) 0.4 (0.0-0.4) % Neut % (Auto) 47.3 (45-73) % Lymph % (Auto) 34.7 (20-40) % [place] % (Auto) 9.7 (2-11) % Eos % (Auto) 6.7 H (0-4) % Baso % (Auto) 1.2 (0-2) % Lymph # (Auto) 1.7 (1.2-4.9) X10*3/uL [place] # (Auto) 0.5 (0.1-1.2) X10*3/uL Eos # (Auto) 0.3 (0.0-0.4) X10*3/uL Baso # (Auto) 0.1 (0.0-0.2) X10*3/uL Abs Immat Gran (auto) 0.02 (0.00-0.03) X10*3/uL Absolute Neuts (auto) 2.3 (2.0-8.3) x10*3/uL Absolute Nucleated RBC 0.000 (0.0-0.012) X10*3/uL Nucleated RBC % (auto) 0.0 (0.0-0.2) /100WBC ESR 2 (0-15) MM/HR Sodium 141 (135-145) mmol/L Potassium 5.3 H D (3.3-5.1) mmol/L Chloride 105 (96-108) mmol/L Carbon Dioxide 30 H (22-29) mmol/L Anion Gap 11 L (12-20) BUN 14 (9-16) mg/dL Creatinine 1.14 (0.5-1.4) mg/dL Estim Creat Clear Calc TNP Estimated GFR > 60 Random Glucose 110 (60-115) mg/dL Calcium 10.0 D (8.4-10.2) mg/dL Magnesium 1.8 (1.6-2.6) mg/dL Total Bilirubin 0.8 (0.0-1.0) mg/dL AST 26 (5-37) U/L ALT 21 (0-40) U/L Alkaline Phosphatase 80 (39-117) U/L C-Reactive Protein 0.14 (< or = 0.50) mg/dL Total Protein 7.1 (6.5-8.0) g/dL Albumin 4.4 (3.5-5.0) g/dL Imaging Data Left lower leg US: Attestation: I personally reviewed and interpreted this imaging study as follows: My impression: No acute process. Radiologist's impression: EXAMINATION:? US VENOUS ULTRASOUND WITH DOPPLER LOWER EXTREMITY, LEFT CLINICAL INFORMATION:? Left calf pain. COMPARISON:? None TECHNIQUE: Ultrasound of the deep veins is performed from the hip to the calf with compression sonography and color and pulse Doppler assessment. Spectral analysis with color-flow imaging is performed. FINDINGS: There is normal venous compression and respiratory variation and augmented flow. The visualized common femoral vein, superficial femoral vein, profunda femoral vein, popliteal vein, and the trifurcation region shows no evidence of deep venous thrombosis. ? There is no significant popliteal fossa cyst. If the patient's symptoms persist, followup ultrasound in 5 days 7 days might be of value to exclude proximal propagation from a non-visualized calf vein. US/US venous duplex LE LT IMPRESSION: No DVT demonstrated in the left lower extremity. Dictated By: Erica Mosqueda Signed By: Electronically signed by Erica?Panda 02/11/22 1130 Discharge Plan Discharge Clinical Impression: COVID-19 long hauler manifesting chronic joint pain Patient Disposition: Home, Self-Care Additional Instructions: Follow up with your primary care provider. Return to the emergency department immediately if your symptoms worsen or if you develop any dizziness, shortness of breath, difficulty breathing, chest pain, blurry vision, loss of vision, nausea, vomiting, abdominal pain, fever, chills, back pain, or any other complaints. Prescriptions: No Action pantoprazole 40 mg tablet,delayed release (DR/EC) 40 mg PO DAILY Qty: 60 3RF multivitamin Tablet 1 tab PO DAILY Referrals: Pj Fleming MD [Primary Care Provider] - Interventions: ED Discharge Assessment Last Done: 02/11/22 12:23 Discharge Date/Time: 02/11/22 12:24 Print Language: [place]an
[2022-02-11 11:08] LABS: MANUAL DIFF FLAG NO
[2022-02-11 11:11] LABS: Basophils Absolute Auto 0.1 X10*3/uL (0.0-0.2); Basophils Percent Auto 1.2 % (0-2); Eosinophils Absolute Auto 0.3 X10*3/uL (0.0-0.4); Eosinophils Percent Auto 6.7 % (0-4); Hemoglobin 16.2 g/dl (14.0-18.0); Imm Gran Abs Auto 0.02 X10*3/uL (0.00-0.03); Imm Gran Pct Auto 0.4 % (0.0-0.4); Lymphocytes Absolute Auto 1.7 X10*3/uL (1.2-4.9); Lymphocytes Percent Auto 34.7 % (20-40); Mean Corpuscular Hemoglobin 31.2 pg (27.0-33.0); Mean Corpuscular Volume 86.5 fL (80.0-98.0); Mean Platelet Volume 9.5 fL (9.4-12.4); Monocytes Absolute Auto 0.5 X10*3/uL (0.1-1.2); Monocytes Percent Auto 9.7 % (2-11); Neutrophils Absolute Auto 2.3 x10*3/uL (2.0-8.3); Neutrophils Percent Auto 47.3 % (45-73); Platelet Count 244 X10*3/uL (160-400); Red Cell Distribution Width 12.1 % (11.0-16.0)
[2022-02-11 11:26] LABS: Alanine Aminotransferase 21 U/L (0-40); Albumin Level 4.4 g/dL (3.5-5.0); Alkaline Phosphatase 80 U/L (39-117); Anion Gap 11 (12-20); Aspartate Amino Transferase 26 U/L (5-37); Bilirubin Total 0.8 mg/dL (0.0-1.0); Blood Urea Nitrogen 14 mg/dL (9-16); C Reactive Protein 0.14 mg/dL (< or = 0.50); Carbon Dioxide 30 mmol/L (22-29); Chloride 105 mmol/L (96-108); Estimated Glomerular Filt Rate > 60; Glucose Random 110 mg/dL (60-115); Magnesium 1.8 mg/dL (1.6-2.6); Potassium 5.3 mmol/L (3.3-5.1); Sodium 141 mmol/L (135-145); Total Protein 7.1 g/dL (6.5-8.0)
[2022-02-11 11:41] VITALS: BP 137/79; PULSE 62; RESP 18; TEMP 36.7; O2SAT 98; BMI 25.1
[2022-02-11 11:59] LABS: Erythrocyte Sedimentation Rate 2 MM/HR (0-15)
== END 2022-02-11 12:24 | disposition home or self-care (01) ==
PROVIDERS: Physician Assistant Medical; Emergency Provider Emergency Medicine; PCP Internal Medicine
DX: U09.9 Post COVID-19 condition, unspecified (principal); G89.29 Other chronic pain; M25.50 Pain in unspecified joint; M79.651 Pain in right thigh; M79.662 Pain in left lower leg
CPT/HCPCS: 36415; 80053; 83735; 85025; 85652; 86140; 93971; 99282; 99284

== ENCOUNTER 2022-07-19 10:07 | Outpatient (REF) | payer OTHER, SELFPAY ==
[2022-07-19 10:27] LABS: MANUAL DIFF FLAG NO
[2022-07-19 11:25] LABS: Appearance Urine Clear; Color Urine Yellow; Glucose Urine UA Negative (Negative); Leukocyte Esterase Urine Negative (Negative); Nitrite Urine Negative (Negative); Urine Blood Negative (Negative); Urine Ketones Negative (Negative); Urine Protein Negative (Neg-Trace)
[2022-07-19 11:37] LABS: Basophils Percent Auto 0.9 % (0-2); Eosinophils Absolute Auto 0.2 X10*3/uL (0.0-0.4); Eosinophils Percent Auto 3.8 % (0-4); Hematocrit 44.4 % (42.0-52.0); Hemoglobin 15.9 g/dl (14.0-18.0); Imm Gran Abs Auto 0.01 X10*3/uL (0.00-0.03); Imm Gran Pct Auto 0.2 % (0.0-0.4); Lymphocytes Absolute Auto 1.8 X10*3/uL (1.2-4.9); Lymphocytes Percent Auto 37.2 % (20-40); Mean Corpuscular HGB Conc 35.8 g/dl (31.0-36.0); Mean Corpuscular Hemoglobin 31.5 pg (27.0-33.0); Mean Corpuscular Volume 87.9 fL (80.0-98.0); Mean Platelet Volume 10.2 fL (9.4-12.4); Monocytes Absolute Auto 0.6 X10*3/uL (0.1-1.2); Monocytes Percent Auto 11.7 % (2-11); Neutrophils Absolute Auto 2.2 x10*3/uL (2.0-8.3); Neutrophils Percent Auto 46.2 % (45-73); Platelet Count 234 X10*3/uL (160-400); Red Blood Count 5.05 X10*6/uL (4.60-5.80); Red Cell Distribution Width 11.9 % (11.0-16.0); White Blood Count 4.7 X10*3/uL (4.8-10.8)
[2022-07-19 12:13] LABS: Alanine Aminotransferase 20 U/L (0-40); Albumin Level 4.3 g/dL (3.5-5.0); Alkaline Phosphatase 68 U/L (39-117); Anion Gap 13 (12-20); Aspartate Amino Transferase 31 U/L (5-37); Blood Urea Nitrogen 24 mg/dL (9-16); Calcium 9.4 mg/dL (8.4-10.2); Carbon Dioxide 25 mmol/L (22-29); Chloride 104 mmol/L (96-108); Cholesterol 174 mg/dL; Estimated Glomerular Filt Rate > 60; Glucose Random 83 mg/dL (60-115); Potassium 4.4 mmol/L (3.3-5.1); Sodium 138 mmol/L (135-145); Total Protein 6.6 g/dL (6.5-8.0)
[2022-07-19 12:18] LABS: TSH reflex Free T4 0.96 uIU/mL (0.32-4.0); Vitamin D 25-OH Total 25.9 ng/mL (>30)
== END 2022-07-19 10:08 | disposition home or self-care (01) ==
LOC: HO.LAB 10:07
PROVIDERS: PCP Internal Medicine; Visit Provider Internal Medicine
DX: Z00.00 Encounter for general adult medical examination without abnormal findings (principal); R30.0 Dysuria; E55.9 Vitamin D deficiency, unspecified
CPT/HCPCS: 36415; 80053; 81003; 82306; 82465; 84443; 85025

== ENCOUNTER → 2022-12-09 10:54 | Outpatient (BNVA) | payer OTHER, SELFPAY | PROVIDERS: PCP Internal Medicine; Visit Provider Internal Medicine Gastroenterology ==

== ENCOUNTER 2023-05-23 13:11 | Outpatient (AMB) | payer OTHER, SELFPAY ==
--- NOTE | 2023-05-23 13:13 | MHC.PC.OV ---
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 Patient of Dr. Ramos presents today to dicuss ADHD testing. Patient reports going to employee care therapist recommended to come get testing. Inability to focus, constant stimulation at all times. Difficulty completing one task at a time, patient reports will start the dishes in and get off track and start vacuuming living room etc. 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 Patient also reports difficulty concentrating at work when they were going over protocols and will follow sleep during meeting. 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 Patient reports that he did benefit from this medication and that he was able to study as well as complete his household tasks. Patient reports his daughter who is 8 years old is diagnosed with ADHD. And he always had difficulty focusing in school growing up as well. Patient requesting to be formally evaluated for ADHD. [facility] Medical History Allergic rhinitis GERD (gastroesophageal reflux disease) Internal hemorrhoids Overweight (BMI 25.0-29.9) Right knee pain Surgical History Hx of colonoscopy (~06/07/21) History of vasectomy Family History Father Stroke Mother Cancer Brother In good health Son In good health Daughter In good health Social History Housing: House Alcohol intake: current Alcohol intake frequency: holidays/special occasions only Patient Tobacco Use Status: Former Tobacco user e-Cigarette/Vaping Use: Never Used Second Hand Smoke Exposure: Yes service: No Current occupational status: employed 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 Chencho Smith, Ashley Mccollum, Ilia Méndez and colleagues, with an educational samantha from [employer]. Review of Systems Const Denies chills, Denies fatigue, Denies fever(s) and Denies poor appetite Eyes Denies no additional complaints ENT Reports Normal hearing present Card Denies chest pain, Denies syncope, Denies rapid heart rate and Denies dyspnea Resp Denies cough and Denies dyspnea GI Denies change in stool character, Denies constipation, Denies diarrhea, Denies nausea and Denies vomiting Denies dysuria, Denies urinary frequency and Denies urinary urgency Neuro Reports Normal hearing present, Denies confusion and Denies syncope Psych Denies anxiety, Denies confusion, Denies depression, Reports difficulty concentrating and Reports irritability Endo Denies fatigue Physical exam (Primary Care) Vital Signs: Last Vital Signs Pulse 86 05/23/23 13:14 BP 118/80 05/23/23 13:14 Pulse Ox 96 05/23/23 13:14 Oxygen Delivery Method Room Air 05/23/23 13:14 BMI result Body Mass Index 28.1 Tobacco/Smoking Status: Tobacco use Status Tobacco use date assessed 07/19/22 05/23/23 13:18 Patient Tobacco Use Status Former Tobacco user 05/23/23 13:18 e-Cigarette/Vaping Use Never Used 05/23/23 13:18 Thrive Assessment: Date of Thrive Assessment Date Thrive assessed 07/19/22 05/23/23 13:18 Const General: No confusion Orientation/consciousness: No confusion HENMT Head: Yes normocephalic and Yes atraumatic Eyes Conjunctivae: conjunctivae normal Chest Chest palpation & inspection: normal inspection of the chest Resp Effort & Inspection: normal respiratory effort Auscultation: clear to auscultation bilaterally, no crackles, no rhonchi and no wheezes Cardio Rate: regular rate Rhythm: regular rhythm Heart sounds: S1 normal heart sound present and S2 normal heart sound present GI Inspection: Yes normal to inspection Neuro General: No confusion Cranial nerves: Yes Normal hearing present Extrem General: No edema Assessment and Plan Assessment & Plan (1) ADHD (attention deficit hyperactivity disorder) evaluation: Code(s): Z13.39 - Encounter for screening examination for other mental health and behavioral disorders Plan: Referral entered to [facility] for further evaluation and treatment recommendations. Plan Keep scheduled physical with Dr. Fleming or follow-up sooner if needed Orders: Referrals Psychiatry Referral Z13.39 - Encounter for screening examination for other mental health and behavioral disorders Coding Level of Care Code Est Pt Level 3 (58601) Diagnoses ADHD (attention deficit hyperactivity disorder) evaluation Z13.39
[2023-05-23 13:14] VITALS: BP 118/80; PULSE 86; O2SAT 96; BMI 28.1
== END 2023-05-23 13:50 | disposition home or self-care (01) ==
PROVIDERS: PCP Internal Medicine; Visit Provider Nurse Practitioner Family
DX: Z13.39 Encounter for screening examination for other mental health and behavioral disorders (principal)
CPT/HCPCS: 99213

== ENCOUNTER 2023-07-22 08:54 | Outpatient (AMB) | payer OTHER, SELFPAY ==
[2023-07-22 08:54] VITALS: BP 118/78; PULSE 94; O2SAT 97; BMI 28.3
--- NOTE | 2023-07-22 08:54 | A.OFFPC_ITS ---
Vital Signs 07/22/23 08:54 Height 6 ft 2 in Weight 220 lb 9 oz BMI 28.3 BP 118/78 Blood Pressure Location Lt brachial Position Sitting Pulse 94 Pulse Source Pulse Oximeter Pulse Oximetry (%) 97 Oxygen Delivery Method Room Air Intake Visit Reasons: Annual Physical Cw Operator Required: No Accompanied by: Self / Same As Patient Allergies pollen extracts [POLLEN] Allergy (Mild, Verified 07/22/23 09:19) RUNNY NOSE, IRRITATED EYES, SNEEZING Medication List - Last Reconciled 07/22/23 by Pj Fleming MD fluticasone propionate 50 mcg/actuation 1 spray intranasal DAILY multivitamin 1 tab PO DAILY pantoprazole 40 mg PO DAILY Tobacco use date assessed: 07/22/23 Dental Screening Dental Screen Date: 07/22/23 Did you have a dental visit in the last 12 months?: Yes Did you have a dental problem in the last 6 months where you did not have access to dental care?: No Was dental information given to patient?: Patient has dentist HPI Annual Physical HPI Details Patient comes in today for his annual physical examination States that he continues to struggle with symptoms of ADHD He was referred to psychiatry back in May 2023 and states that he filled out all the paperworks required for [facility] in [place] and was told that they will call him back to schedule his appt but states that he has not heard back from them so far Would like to see if there is anything in the meantime that we can start him on to help with his symptoms while he is waiting for psychiatry to see him and evaluate him States that he feels well otherwise He denies any headaches or dizziness Denies any chest pains, no SOB No nausea/vomiting, no abdominal pain No change in bowel habits noted Denies any acute urinary symptoms COUNTS INCLUDE 234 BEDS AT [facility] Medical History Allergic rhinitis GERD (gastroesophageal reflux disease) Internal hemorrhoids Right knee pain Overweight (BMI 25.0-29.9) Surgical History Hx of colonoscopy (~06/07/21) History of vasectomy Family History Father Stroke Mother Cancer Brother In good health Son In good health Daughter In good health Social History Housing: House Alcohol intake: current Alcohol intake frequency: holidays/special occasions only Patient Tobacco Use Status: Former Tobacco user e-Cigarette/Vaping Use: Never Used Second Hand Smoke Exposure: Yes service: No Current occupational status: employed Current occupation: [employer] Cognitive needs: No Hearing needs: No Vision needs: No Questionnaire PHQ-9 Over the last 2 weeks, how often have you been bothered by any of the following problems? 1. Little interest or pleasure in doing things: not at all 2. Feeling down, depressed, or hopeless: not at all 3. Trouble falling or staying asleep, or sleeping too much: not at all 4. Feeling tired or having little energy: not at all 5. Poor appetite or overeating: not at all 6. Feeling bad about yourself - or that you are a failure or have let yourself or your family down: not at all 7. Trouble concentrating on things, such as reading the newspaper or watching television: not at all 8. Moving or speaking so slowly that other people could have noticed. Or the opposite - being so fidgety or restless that you have been moving around a lot more than usual: not at all 9. Thoughts that you would be better off or of hurting yourself in some way: not at all Total score: 0 Depression Screening Interpretation: Negative Depression Screening Done: Yes 78347 - PHQ-9 Billing: Yes Source: Developed by Drs. Checnho Smith, Ashley Mccollum, Ilia Méndez and colleagues, with an educational samantha from [employer]. Thrive Questionnaire Date Thrive assessed: 07/22/23 I am a: Patient What is your living situation today?: I have a steady place to live Within the past 12 months, did the food you bought not last and you didn't have the money to get more?: Never true Within the past 12 months, did you worry whether your food would run out before you got money to buy more?: Never true Do you have trouble paying for medicines?: No Do you have trouble getting transportation to medical appointments?: No Do you have trouble paying your heating and electricity bill?: No Do you have trouble taking care of your child, family member or friend?: No Do you have trouble with day-to-day activities such as bathing, preparing meals, shopping, managing finances, etc.?: No Are you currently unemployed and looking for a job?: No Are you interested in more education?: No Please select the resources that you would like help with: None Currently or been in a relationship where the following occur: no concerns reported THRIVE Score: 0 AUDIT C Alcohol Use Questionnaire (AUDIT-C) 1. How often do you have a drink containing alcohol?: Monthly or less 2. How many drinks containing alcohol do you have on a typical day when you are drinking?: 1 or 2 3. How often do you have six or more drinks on one occasion?: Never Total Score: 1 ANGEL-7 AMB Questionnaire ANGEL-7 Date ANGEL - 7 assessed: 07/22/23 Feeling nervous, anxious, or on edge: 0 = Not at all Not being able to stop or control worryin = Not at all Worrying too much about different things: 0 = Not at all Trouble relaxin = Not at all Being so restless that it is hard to sit still: 0 = Not at all Becoming easily annoyed or irritable: 0 = Not at all Feeling afraid as if something awful might happen: 0 = Not at all Total ANGEL-7 score (0-4 normal; 5-9 mild; 10-14 moderate; 15-21 severe): 0 Source: Developed by Drs. Chencho Smith, Ashley Mccollum, Ilia Méndez and colleagues, with an educational samantha from [employer]. Review of Systems Const Denies chills, Denies fatigue, Denies fever(s), Denies headache(s), Denies malaise and Denies weakness Eyes Denies blurry vision, Denies change in vision, Denies irritation and Denies itchy eyes ENT Denies dysphagia, Denies dizziness, Denies otalgia, Denies headache(s), Denies nasal congestion, Denies neck pain, Denies odynophagia and Denies sore throat Card Denies chest pain, Denies rapid heart rate, Denies irregular heart rhythm, Denies palpitations and Denies dyspnea Resp Denies chest congestion, Denies cough, Denies dyspnea and Denies wheezing GI Denies abdominal pain, Denies bloating, Denies constipation, Denies dysphagia, Denies heartburn, Denies diarrhea, Denies nausea, Denies odynophagia and Denies vomiting Denies hematuria, Denies difficulty urinating, Denies dysuria, Denies urinary frequency and Denies urinary urgency Musc Denies back pain, Denies arthralgias, Denies joint swelling, Denies muscle weakness and Denies neck pain Skin/Breast Denies change in pigmentation, Denies lesions, Denies rash and Denies unusual bruising Neuro Denies dizziness, Denies headache(s), Denies paresthesias and Denies weakness Psych Reports difficulty concentrating Endo Denies fatigue and Denies palpitations Aller/Immun Denies itchy eyes and Denies wheezing Physical exam (Primary Care) Vital Signs: Last Vital Signs Pulse 94 07/22/23 08:54 BP 118/78 07/22/23 08:54 Pulse Ox 97 07/22/23 08:54 Oxygen Delivery Method Room Air 07/22/23 08:54 BMI result Body Mass Index 28.3 Tobacco/Smoking Status: Tobacco use Status Tobacco use date assessed 07/22/23 07/22/23 09:00 Patient Tobacco Use Status Former Tobacco user 07/22/23 09:00 e-Cigarette/Vaping Use Never Used 07/22/23 09:00 PHQ-9: PHQ-9 Score PHQ-9: Total score 0 07/22/23 09:00 Depression Screening Interpretation: Negative Thrive Assessment: Date of Thrive Assessment Date Thrive assessed 07/22/23 07/22/23 09:00 Currently or been in a relationship where the following occur: no concerns reported Const General: no acute distress, alert and awake Orientation/consciousness: patient oriented x3 HENMT Head: Yes normocephalic and Yes atraumatic Ears: external ears normal, TM's normal bilaterally and EAC's normal General nose exam: No nasal discharge present Face and sinus: Yes normal facial exam and Yes sinuses nontender Teeth and gingiva: dentition normal Throat: Yes posterior oropharynx normal and Yes tonsils normal (no TP congestion) Eyes Eyelids: Yes eyelids normal Conjunctivae: conjunctivae normal Pupils: Equal, round and reactive pupils present EOM: EOMs intact bilaterally Neck Neck: Yes no lymphadenopathy and Yes supple Thyroid: Thyroid normal Resp Auscultation: clear to auscultation bilaterally, no rales and no wheezes Cardio Rate: regular rate Rhythm: regular rhythm Heart sounds: no murmurs GI Palpation (GI): Soft to palpation, nontender and No hepatosplenomegaly present Auscultation: normal bowel sounds General: Yes no CVA tenderness Back/Spine/Pelvis Back: no CVA tenderness Thoracic/Lumbar Spine: thoracic and lumbar spine normal to inspection Skin Lesions: no lesions Rashes: no rashes Neuro General: patient oriented x3, moves all extremities, no focal motor deficits and CN's II-XI intact bilaterally Cranial nerves: Yes Equal, round and reactive pupils present Cognition (Neuro): normal cognition Gait exam (Neuro): Normal gait present Extrem General: Yes no clubbing, cyanosis or edema Assessment and Plan Assessment & Plan (1) Annual physical exam: Code(s): Z00.00 - Encounter for general adult medical examination without abnormal findings Plan: Check labs (2) GERD (gastroesophageal reflux disease): Code(s): K21.9 - Gastro-esophageal reflux disease without esophagitis Qualifiers: Esophagitis presence: without esophagitis Qualified Code(s): K21.9 - Gastro-esophageal reflux disease without esophagitis Plan: Dietary restrictions reinforced Continue Pantoprazole 40 mg QD Follow up with GI (Dr. Medina) as scheduled (3) Allergic rhinitis: Code(s): J30.9 - Allergic rhinitis, unspecified Qualifiers: Allergic rhinitis trigger: unspecified Allergic rhinitis seasonality: non-seasonal Qualified Code(s): J30.89 - Other allergic rhinitis Plan: Continue OTC Fluticasone 50 mcg nasal spray QD PRN (4) ADHD (attention deficit hyperactivity disorder) evaluation: Code(s): Z13.39 - Encounter for screening examination for other mental health and behavioral disorders Plan: States that he has taken Adderall from his friends in the past with (+) improvement of his concentration and ability to complete/finish his work but he has never been prescribed any Rx for ADHD He was previously referred to psychiatry and states that he filled out all the required papers but he was never called back again to schedule an appointment Will make out a new referral ([facility] and [facility] Will also start him in the meantime on Strattera 40 mg Q AM (5) Overweight (BMI 25.0-29.9): Code(s): E66.3 - Overweight Plan: Reinforced diet/exercise as tolerated/lose weight Plan To return in 1 year for his next annual physical examination Orders: Orders TSH reflex Free T4 Today E78.00 - Pure hypercholesterolemia, unspecified, K21.9 - Gastro-esophageal reflux disease without esophagitis, Z00.00 - Encounter for general adult medical examination without abnormal findings Vitamin D 25-OH Total Today E55.9 - Vitamin D deficiency, unspecified, K21.9 - Gastro-esophageal reflux disease without esophagitis, Z00.00 - Encounter for general adult medical examination without abnormal findings Complete Blood Count Auto Diff Today D64.9 - Anemia, unspecified, K21.9 - Gastro-esophageal reflux disease without esophagitis, Z00.00 - Encounter for general adult medical examination without abnormal findings UA CC w/rflx Micro + Cult Today K21.9 - Gastro-esophageal reflux disease without esophagitis, R30.0 - Dysuria, Z00.00 - Encounter for general adult medical examination without abnormal findings Cholesterol Today K21.9 - Gastro-esophageal reflux disease without esophagitis, Z00.00 - Encounter for general adult medical examination without abnormal findings Comprehensive Met. Panel Today K21.9 - Gastro-esophageal reflux disease without esophagitis, Z00.00 - Encounter for general adult medical examination without abnormal findings Referrals Psychiatry Referral Z13.39 - Encounter for screening examination for other mental health and behavioral disorders Medications: New atomoxetine (Strattera) 40 mg PO QAM 30 days 30 caps 0RF Z13.39 - Encounter for screening examination for other mental health and behavioral disorders Coding Level of Care Code Est Pt Prev Care 18-39y(33774) Diagnoses Annual physical exam Z00.00 Gastroesophageal reflux disease without esophagitis K21.9 Esophagitis presence: without esophagitis Non-seasonal allergic rhinitis, unspecified trigger J30.89 Allergic rhinitis trigger: unspecified Allergic rhinitis seasonality: non-seasonal ADHD (attention deficit hyperactivity disorder) evaluation Z13.39 Overweight (BMI 25.0-29.9) E66.3
== END 2023-07-22 09:37 | disposition home or self-care (01) ==
PROVIDERS: PCP Internal Medicine; Visit Provider Internal Medicine
DX: Z00.00 Encounter for general adult medical examination without abnormal findings (principal); K21.9 Gastro-esophageal reflux disease without esophagitis; J30.89 Other allergic rhinitis; Z13.39 Encounter for screening examination for other mental health and behavioral disorders; E66.3 Overweight
CPT/HCPCS: 99395

== ENCOUNTER 2023-07-22 09:57 | Outpatient (REF) | payer OTHER, SELFPAY ==
[2023-07-22 10:17] LABS: MANUAL DIFF FLAG NO
[2023-07-22 10:32] LABS: Basophils Percent Auto 0.7 % (0-2); Eosinophils Absolute Auto 0.1 X10*3/uL (0.0-0.4); Eosinophils Percent Auto 2.3 % (0-4); Hematocrit 45.1 % (42.0-52.0); Hemoglobin 16.2 g/dl (14.0-18.0); Imm Gran Abs Auto 0.03 X10*3/uL (0.00-0.03); Imm Gran Pct Auto 0.5 % (0.0-0.4); Lymphocytes Absolute Auto 1.8 X10*3/uL (1.2-4.9); Lymphocytes Percent Auto 32.4 % (20-40); Mean Corpuscular HGB Conc 35.9 g/dl (31.0-36.0); Mean Corpuscular Hemoglobin 31.3 pg (27.0-33.0); Mean Corpuscular Volume 87.2 fL (80.0-98.0); Mean Platelet Volume 9.4 fL (9.4-12.4); Monocytes Absolute Auto 0.7 X10*3/uL (0.1-1.2); Monocytes Percent Auto 12.6 % (2-11); Neutrophils Absolute Auto 2.9 x10*3/uL (2.0-8.3); Neutrophils Percent Auto 51.5 % (45-73); Platelet Count 230 X10*3/uL (160-400); Red Blood Count 5.17 X10*6/uL (4.60-5.80); Red Cell Distribution Width 12.1 % (11.0-16.0); White Blood Count 5.6 X10*3/uL (4.8-10.8)
[2023-07-22 10:57] LABS: Appearance Urine Clear; Color Urine Yellow; Glucose Urine UA Negative (Negative); Leukocyte Esterase Urine Negative (Negative); Nitrite Urine Negative (Negative); PH 7.5 (5.0-9.0); Specific Gravity - Urine 1.025 (1.005-1.025); Urine Blood Negative (Negative); Urine Ketones Negative (Negative); Urine Protein Negative (Neg-Trace)
[2023-07-22 11:33] LABS: Alanine Aminotransferase 20 U/L (0-40); Albumin Level 4.3 g/dL (3.5-5.0); Alkaline Phosphatase 68 U/L (39-117); Anion Gap 9 (12-20); Aspartate Amino Transferase 29 U/L (5-37); Bilirubin Total 0.9 mg/dL (0.0-1.0); Blood Urea Nitrogen 20 mg/dL (9-16); Calcium 9.4 mg/dL (8.4-10.2); Carbon Dioxide 30 mmol/L (22-29); Chloride 103 mmol/L (96-108); Cholesterol 182 mg/dL (<200); Estimated Glomerular Filt Rate > 60; Glucose Random 96 mg/dL (60-115); Potassium 4.3 mmol/L (3.3-5.1); Sodium 138 mmol/L (135-145); Total Protein 7.1 g/dL (6.5-8.0)
[2023-07-22 11:35] LABS: TSH reflex Free T4 0.93 uIU/mL (0.32-4.0); Vitamin D 25-OH Total 29.8 ng/mL (>30)
== END 2023-07-22 09:58 | disposition home or self-care (01) ==
LOC: HO.LAB 09:57
PROVIDERS: PCP Internal Medicine; Visit Provider Internal Medicine
DX: Z00.00 Encounter for general adult medical examination without abnormal findings (principal); K21.9 Gastro-esophageal reflux disease without esophagitis; D64.9 Anemia, unspecified; R30.0 Dysuria; E55.9 Vitamin D deficiency, unspecified; E78.00 Pure hypercholesterolemia, unspecified
CPT/HCPCS: 36415; 80053; 81003; 82306; 82465; 84443; 85025

== ENCOUNTER 2023-10-04 08:59 | Emergency (ER) | payer OTHER, SELFPAY ==
--- NOTE | ~2023-10-04 | US_ITS ---
EXAMINATION: US VENOUS ULTRASOUND WITH DOPPLER LOWER EXTREMITY, LEFT CLINICAL INFORMATION: Pain edema COMPARISON: Prior study January 2022. TECHNIQUE: Ultrasound of the deep veins is performed from the hip to the calf with compression sonography and color and pulse Doppler assessment. Spectral analysis with color-flow imaging is performed. FINDINGS: There is normal venous compression and respiratory variation and augmented flow. The visualized common femoral vein, superficial femoral vein, profunda femoral vein, popliteal vein, and the trifurcation region shows no evidence of deep venous thrombosis. There is no significant popliteal fossa cyst. If the patient's symptoms persist, followup ultrasound in 5 days 7 days might be of value to exclude proximal propagation from a non-visualized calf vein. US/US venous duplex LE LT IMPRESSION: No DVT demonstrated in the left lower extremity.
[2023-10-04 09:01] VITALS: BP 141/89; PULSE 95; RESP 16; TEMP 36; O2SAT 97; BMI 28.9
--- NOTE | 2023-10-04 09:25 | ED.GENADULT ---
HPI - General Adult General Chief complaint: Extremity Injury, Lower Stated complaint: Left leg burning and throbbing Time Seen by Provider: 10/04/23 09:12 Source: patient Mode of arrival: ambulatory Limitations: no limitations History of Present Illness HPI narrative: 33 yo m with a pmhx of GERD, diverticulosis, internal hemorrhoids , ADHD, anxiety presents with intermittent throbbing sensation to left calf X 7 days. 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 Reports left calf gets red and feels uncomfortable, warm, and pichardo. He denies trauma to the area. There is no hx of blood clots. Pt is not a smoker. Unknown family history of blood clots. Denies cp, shortness of breath, fever, chills, nausea, vomiting, diarrhea, vision changes. Related Data Home Medications ?Medication ?Instructions ?Recorded ?Confirmed multivitamin 1 tab PO DAILY 07/16/21 07/22/23 fluticasone propionate 50 1 spray intranasal DAILY 07/19/22 07/22/23 mcg/actuation nasal spray,suspension Previous Rx's ?Medication ?Instructions ?Recorded pantoprazole 40 mg tablet,delayed 40 mg PO DAILY #60 tabs 12/09/22 release atomoxetine 40 mg capsule 40 mg PO QAM 30 days #30 caps 07/22/23 (Strattera) ketorolac 10 mg tablet 10 mg PO TID PRN pain 5 days #15 10/04/23 tabs Allergies Allergy/AdvReac Type Severity Reaction Status Date / Time pollen extracts [POLLEN] Allergy Mild RUNNY Verified 10/04/23 09:05 NOSE, IRRITATED EYES, SNEEZING Review of Systems Review of Systems: Yes all other systems are reviewed and are negative PMFSH Past Medical History Attestation statement: The following information was validated with the patient. Source: old records reviewed and nursing notes reviewed Medical History Allergic rhinitis GERD (gastroesophageal reflux disease) Internal hemorrhoids Right knee pain Overweight (BMI 25.0-29.9) Surgical History Hx of colonoscopy (~06/07/21) History of vasectomy Family History Family History Father Stroke Mother Cancer Brother In good health Son In good health Daughter In good health Social History Social History Housing: House Alcohol intake: current Alcohol intake frequency: holidays/special occasions only Patient Tobacco Use Status: Former Tobacco user e-Cigarette/Vaping Use: Never Used Second Hand Smoke Exposure: Yes Advance Directives: No service: No Current occupational status: employed 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 Oriented X3.? No acute distress.? Head: Normocephalic, atraumatic, no step-offs or deformities Eyes: Pupils equal, round and reactive to light.? Neck: Normal inspection.? Neck supple.? CVS: Normal heart rate and rhythm.? Pulses normal.? Respiratory: No respiratory distress.? Skin: Skin warm and dry.? Normal skin color.? Normal skin turgor.? Extremities: No lower extremity edema.? No calf ttp. 5/5 strength to bilateral upper and lower extremities. Negative Joey's sign. Back: No midline tenderness, no C-spine tenderness, full range of motion, no CVA tenderness bilaterally Neuro: Oriented X 3.? No motor deficit.? No sensory deficit. CN 2-12 intact Course Reevaluation(s) Reevaluation #1: CBC unremarkable. Chemistry no acute findings requiring intervention. Coags unremarkable. DVT study no DVT in the left lower extremity. Patient feeling well will give Toradol for discomfort. Educated patient on diagnosis and treatment plan, answered all question, patient verbalizes understanding. At this time patient will be discharged home, advised to return with new or worsening symptoms. Educated on worrisome signs and symptoms and when to return. At this time I feel comfortable discharge home. Time: 10:53 Medical Decision Making Medical Decision Making MDM Narrative: 0953 33 yo m with pmhx of GERD, diverticulosis presents with intermittent throbbing to left calf X7 days. Reports redness, warmth, burning sensation. No hx of clots and unknown family hx of clots. Not on thinners. PE benign HX and PE concerning for possible calf cramping versus contusion versus DVT versus cellulitis. Unlikely arterial occlusion. No signs of neurovascular compromise or acute threat to limb. Plan labs, ultrasound Differential Diagnosis Differential Diagnoses: The differential diagnosis associated with the presentation includes HX and PE concerning for possible calf cramping versus contusion versus DVT versus cellulitis. Unlikely arterial occlusion. No signs of neurovascular compromise or acute threat to limb. Admission/Observation Consideration of admission/observation: Escalation of care including admission/observation considered Lab Data MDM Lab Attestation statement: I reviewed the patient's lab results. 10/04/23 09:36 10/04/23 09:36 Labs: Lab Results 10/04/23 Range/Units 09:36 WBC 7.2 (4.8-10.8) X10*3/uL RBC 5.35 (4.60-5.80) X10*6/uL Hgb 16.9 (14.0-18.0) g/dl Hct 45.1 (42.0-52.0) % MCV 84.3 (80.0-98.0) fL MCH 31.6 (27.0-33.0) pg MCHC 37.5 H (31.0-36.0) g/dl RDW 11.7 (11.0-16.0) % Plt Count 254 (160-400) X10*3/uL MPV 9.3 L (9.4-12.4) fL Immature Gran % (Auto) 0.6 H (0.0-0.4) % Neut % (Auto) 57.5 (45-73) % Lymph % (Auto) 32.5 (20-40) % Daniels % (Auto) 7.7 (2-11) % Eos % (Auto) 1.1 (0-4) % Baso % (Auto) 0.6 (0-2) % Lymph # (Auto) 2.3 (1.2-4.9) X10*3/uL Daniels # (Auto) 0.6 (0.1-1.2) X10*3/uL Eos # (Auto) 0.1 (0.0-0.4) X10*3/uL Baso # (Auto) 0.0 (0.0-0.2) X10*3/uL Abs Immat Gran (auto) 0.04 H (0.00-0.03) X10*3/uL Absolute Neuts (auto) 4.1 (2.0-8.3) x10*3/uL Absolute Nucleated RBC 0.000 (0.0-0.012) X10*3/uL Nucleated RBC % (auto) 0.0 (0.0-0.2) /100WBC PT 12.7 (11.1-13.3) SEC INR 1.0 (0.9-1.1) Sodium 140 (135-145) mmol/L Potassium 4.2 (3.3-5.1) mmol/L Chloride 106 (96-108) mmol/L Carbon Dioxide 25 (22-29) mmol/L Anion Gap 13 (12-20) BUN 20 H (9-16) mg/dL Creatinine 0.99 (0.5-1.4) mg/dL Estim Creat Clear Calc 136.5 Estimated GFR > 60 Random Glucose 107 (60-115) mg/dL Calcium 9.8 (8.4-10.2) mg/dL Total Bilirubin 0.7 (0.0-1.0) mg/dL AST 26 (5-37) U/L ALT 20 (0-40) U/L Alkaline Phosphatase 69 (39-117) U/L Total Protein 7.6 (6.5-8.0) g/dL Albumin 4.5 (3.5-5.0) g/dL Independent Interpretation I performed an independent interpretation of an: Ultrasound (US/US venous duplex LE LT IMPRESSION: No DVT demonstrated in the left lower extremity.) Radiology Impression Discussion of test interpretation with radiology: I have reviewed the radiologist's reading. External Record Review External record reviewed: Inpatient record, Office record, Outpatient record, Prior outpatient labs, Prior outpatient radiology, Primary care record and Outside ED record Prescription Management I considered prescription management with: Pain Medication (toradol ) Discharge Plan Discharge Clinical Impression: Pain of left calf Patient Disposition: Home, Self-Care Instructions: Leg Pain (ED) Additional Instructions: Take your medications as prescribed. If you were prescribed antibiotics today, it is important that you take your medication to their entirety, do not skip any doses, do not finish them early. Follow-up with your primary care provider this week. Return to the emergency department with new or worsening symptoms. Such as fevers, chills, chest pain, shortness of breath, nausea, vomiting, dizziness, headache, vision changes, lethargy In case of emergency call 911 FINDINGS: There is normal venous compression and respiratory variation and augmented flow. The visualized common femoral vein, superficial femoral vein, profunda femoral vein, popliteal vein, and the trifurcation region shows no evidence of deep venous thrombosis. There is no significant popliteal fossa cyst. If the patient's symptoms persist, followup ultrasound in 5 days 7 days might be of value to exclude proximal propagation from a non-visualized calf vein. US/US venous duplex LE LT IMPRESSION: No DVT demonstrated in the left lower extremity. Prescriptions: New ketorolac 10 mg tablet 10 mg PO TID PRN (Reason: pain) 5 Days Qty: 15 0RF No Action multivitamin Tablet 1 tab PO DAILY fluticasone propionate 50 mcg/actuation spray,suspension 1 spray intranasal DAILY Patient Comments: gets OTC Rx Instructions: administer into each nostril atomoxetine [Strattera] 40 mg capsule 40 mg PO QAM 30 Days Qty: 30 0RF pantoprazole 40 mg tablet,delayed release (DR/EC) 40 mg PO DAILY Qty: 60 8RF Referrals: Pj Fleming MD [Primary Care Provider] - 2 days Stand Alone Forms: Work/School Release Print Language: Slovak
[2023-10-04 09:41] LABS: MANUAL DIFF FLAG NO
[2023-10-04 09:45] LABS: Basophils Percent Auto 0.6 % (0-2); Eosinophils Absolute Auto 0.1 X10*3/uL (0.0-0.4); Eosinophils Percent Auto 1.1 % (0-4); Hematocrit 45.1 % (42.0-52.0); Hemoglobin 16.9 g/dl (14.0-18.0); Imm Gran Abs Auto 0.04 X10*3/uL (0.00-0.03); Imm Gran Pct Auto 0.6 % (0.0-0.4); Lymphocytes Absolute Auto 2.3 X10*3/uL (1.2-4.9); Lymphocytes Percent Auto 32.5 % (20-40); Mean Corpuscular HGB Conc 37.5 g/dl (31.0-36.0); Mean Corpuscular Hemoglobin 31.6 pg (27.0-33.0); Mean Corpuscular Volume 84.3 fL (80.0-98.0); Mean Platelet Volume 9.3 fL (9.4-12.4); Monocytes Absolute Auto 0.6 X10*3/uL (0.1-1.2); Monocytes Percent Auto 7.7 % (2-11); Neutrophils Absolute Auto 4.1 x10*3/uL (2.0-8.3); Neutrophils Percent Auto 57.5 % (45-73); Platelet Count 254 X10*3/uL (160-400); Red Blood Count 5.35 X10*6/uL (4.60-5.80); Red Cell Distribution Width 11.7 % (11.0-16.0); White Blood Count 7.2 X10*3/uL (4.8-10.8)
[2023-10-04 10:06] LABS: Prothrombin Time 12.7 SEC (11.1-13.3)
[2023-10-04 10:15] LABS: Alanine Aminotransferase 20 U/L (0-40); Albumin Level 4.5 g/dL (3.5-5.0); Alkaline Phosphatase 69 U/L (39-117); Anion Gap 13 (12-20); Aspartate Amino Transferase 26 U/L (5-37); Bilirubin Total 0.7 mg/dL (0.0-1.0); Blood Urea Nitrogen 20 mg/dL (9-16); Calcium 9.8 mg/dL (8.4-10.2); Carbon Dioxide 25 mmol/L (22-29); Chloride 106 mmol/L (96-108); Creatinine Clr Calc Pharmacy 136.5; Estimated Glomerular Filt Rate > 60; Glucose Random 107 mg/dL (60-115); Potassium 4.2 mmol/L (3.3-5.1); Sodium 140 mmol/L (135-145)
[2023-10-04 10:35] LABS: Total Protein 7.6 g/dL (6.5-8.0)
[2023-10-04 11:18] VITALS: BP 141/89; PULSE 95; RESP 16; TEMP 36; O2SAT 97
--- NOTE | 2023-10-04 11:19 | PC.NURSE ---
states no pain- declined toradol- jony aware- pt declined prescription- jony aware, cancelling script
== END 2023-10-04 11:10 | disposition home or self-care (01) ==
PROVIDERS: Physician Assistant; Emergency Provider Emergency Medicine; PCP Internal Medicine
DX: M79.662 Pain in left lower leg (principal)
CPT/HCPCS: 36415; 80053; 85025; 85610; 93971; 99284

== ENCOUNTER 2024-01-05 11:10 | Outpatient (AMB) | payer BC, SELFPAY ==
[2024-01-05 11:13] VITALS: BP 129/72; PULSE 94; BMI 24.3
--- NOTE | 2024-01-05 11:13 | MHC.OFFVIS ---
Vital Signs 01/05/24 11:13 Height 6 ft 2 in Weight 189 lb 9.561 oz BMI 24.3 BP 129/72 Blood Pressure Location Lt brachial Position Sitting Pulse 94 Intake Visit Reasons: 1 year follow up Intake Note: Bernardo presents in the office as a 1 year follow up. CC: He is here today for a routine follow up - states that he is relatively doing fine. Facetor Required: No Allergies pollen extracts [POLLEN] Allergy (Mild, Verified 01/05/24 11:15) RUNNY NOSE, IRRITATED EYES, SNEEZING HPI HPI 1 year follow up: Details: 33 yr old m here for f/u RECAP: he noted fresh blood coming x 2 occasions blood was mixed and also dripping into the toilet greenberg he denies diarrhea or constipation no tenesmus or mucous there was no abdominal pain no nausea or vomiting appetite is good weight is stable he went to the ED and no acute GIB noted, diverticulosis HGB was stable at 15 g/dl he has increased fiber intake H pylori--negative colonoscopy: 05/2021-- internal hemorrhoids INTERIM: V rarely sees blood in stools he is doing better with fiber taking PPI no straining no n/v no abdominal pain he feels he is managaing well 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 VITAL SIGNS:see workflow HEENT: Nonicteric sclerae, PERRLA, EOMI. Oropharynx clear. Moist mucous membranes. Conjunctivae appear well perfused. No thyroid mass. CHEST: Chest wall is nontender. HEART: Regular rate and rhythm without murmurs. LUNGS: Clear to auscultation bilaterally. ABDOMEN: Soft, positive bowel sounds, nontender, no organomegaly.no flank tenderness SKIN: No rash, no excessive bruising, petechiae, or purpura. NEUROLOGIC: Cranial nerves II-XII intact without motor/sensory deficit. Psych: nml affect a/P: 1/ internal hemorrhoids--stable 2/ moderate severe reflux--controlled with PPI PLAN: 1/ cont with high fiber diet and diet 2/ he wants to try lower dose 20 mg pantoprazole for the moment, he is taking multivitamin and Vit d supplement daily [facility], [facility] Medical History Allergic rhinitis GERD (gastroesophageal reflux disease) Internal hemorrhoids Right knee pain Overweight (BMI 25.0-29.9) Surgical History Hx of colonoscopy (~06/07/21) History of vasectomy Family History Father Stroke Mother Cancer Brother In good health Son In good health Daughter In good health Social History Housing: House Alcohol intake: current Alcohol intake frequency: holidays/special occasions only Patient Tobacco Use Status: Former Tobacco user e-Cigarette/Vaping Use: Never Used Second Hand Smoke Exposure: Yes service: No Current occupational status: employed 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 Cognitive needs: No Hearing needs: No Vision needs: No Physical Exam Vital Signs: BMI result Body Mass Index 24.3 Assessment & Plan Assessment & Plan (1) GERD (gastroesophageal reflux disease): Code(s): K21.9 - Gastro-esophageal reflux disease without esophagitis Category: Medical Qualifiers: Esophagitis presence: without esophagitis Qualified Code(s): K21.9 - Gastro-esophageal reflux disease without esophagitis Plan: see above (2) Internal hemorrhoids: Code(s): K64.8 - Other hemorrhoids Category: Medical Plan: see above Medications: New pantoprazole 20 mg PO QAM 30 days 30 tabs 3RF Coding Level of Care Code Est Pt Level 3 (04591) Diagnoses Gastroesophageal reflux disease without esophagitis K21.9 Esophagitis presence: without esophagitis Internal hemorrhoids K64.8
== END 2024-01-05 11:35 | disposition home or self-care (01) ==
PROVIDERS: PCP Internal Medicine; Visit Provider Internal Medicine Gastroenterology
DX: K21.9 Gastro-esophageal reflux disease without esophagitis (principal); K64.8 Other hemorrhoids
CPT/HCPCS: 99213

== ENCOUNTER → 2024-01-05 11:10 | Outpatient (BNVA) | payer BC, SELFPAY | PROVIDERS: PCP Internal Medicine; Visit Provider Internal Medicine Gastroenterology ==

== ENCOUNTER 2024-01-05 14:16 | Outpatient (REF) | payer BC, SELFPAY ==
[2024-01-06 08:47] LABS: HBS Num1 182.86 mIU/mL (0-7.99); HBc Num1 0.07 S/CO (0.00-0.79); HBsAGNum1 0.35 S/CO (0.00-0.99); HIV AB/AG Nonreactive (Nonreactive); HIV Num 1 0.06 S/CO (0.00-0.99); Hepatitis B Core Antibody Nonreactive (Nonreactive); Hepatitis B Surface Antigen Negative (Negative); ~Hepatitis B Surface Antibody REACTIVE (Nonreactive); ~Hepatitis C Antibody Nonreactive (Nonreactive)
[2024-01-06 08:54] LABS: Syphilis Screen Nonreactive (Nonreactive)
== END 2024-01-05 14:17 | disposition home or self-care (01) ==
LOC: HO.LAB 14:16
PROVIDERS: PCP Internal Medicine; Visit Provider Internal Medicine
DX: Z20.2 Contact with and (suspected) exposure to infections with a predominantly sexual mode of transmission (principal)
CPT/HCPCS: 36415; 86704; 86706; 86780; 86803; 87340; 87389

== ENCOUNTER 2024-05-07 14:47 | Emergency (ER) | payer OTHER, BC, SELFPAY ==
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
[2024-05-07 14:56] VITALS: BP 140/98; BP 160/90; PULSE 86; PULSE 90; RESP 12; TEMP 36.7; O2SAT 100; O2SAT 97; BMI 26.4
[2024-05-07 14:59] VITALS: BP 140/98; PULSE 86; RESP 12; TEMP 36.7; O2SAT 97
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
[2024-05-07 18:45] VITALS: BP 00/00; PULSE 0; RESP 0; TEMP -17.7; TEMP 0; O2SAT 0
--- NOTE | 2024-05-07 18:48 | PC.NURSE ---
Pt declines VS assessment at time of d/c. Pt is A&Ox3 Skin is warm and dry Speech is clear and concise. Facial symmetry noted. Breaths are even and unlabored. Gait is steady NAD noted.
== END 2024-05-07 18:49 | disposition home or self-care (01) ==
PROVIDERS: Emergency Provider Emergency Medicine
DX: S09.90XA Unspecified injury of head, initial encounter (principal); V43.52XA Car driver injured in collision with other type car in traffic accident, initial encounter; M25.512 Pain in left shoulder; Y93.89 Activity, other specified; Y92.414 Local residential or business street as the place of occurrence of the external cause; Y99.0 Civilian activity done for income or pay
CPT/HCPCS: 70450; 72125; 99284

== ENCOUNTER 2024-08-02 14:29 | Outpatient (AMB) | payer BC, SELFPAY ==
--- OUTSIDE RECORDS SUMMARY | 2024-08-02 14:32 | XMS_ITS | Encounter Summary ---
Author Organization [facility] Address [address] [place] [address] Phone Care Team Providers Care Bird Raiser Name Role Phone Barbara Reynoso MD Primary Care Provider Unava ilable Encounter Details Date Type Department Care Team (Late st Contact Info) Description 01/30/2017 Conversion Encounter [facility] - [address] [address] Social History Tobacco Use Types Packs/Day Years Used Date Smoking Tobacco: Never Assessed Sex and Gender Information Value Date Recorded Sex Assigned at Not on file Legal Sex Male 4:46 PM EDT Gender Identity Not on file Sexual Orientation Not on file documented as of this encounter Plan of Treatment Not on file documented as of this encounter Visit Diagnoses Not on filedocumented in this encounter Care Teams Bird Raiser Relationship Specialty Start Date End Date Barbara Reynoso MD PCP - General 01/24/17 documented as of this encounter
--- OUTSIDE RECORDS SUMMARY | 2024-08-02 14:32 | XMS_ITS | Clinical Summary ---
Author Organization [facility] Address [address] [place] [phone] Phone Care Team Providers Care Head Sampler Name Role Phone Barbara Reynoso MD Primary Care Provider Unava ilable Immunizations Immunization Administration Dates Next Due DTP 11/14/1995, 3,1991,06/15,1991 H1N1 06/28/2009 Hep B, ped/adol 03/07/1997,03/15/1996,01/14/1996 Hib (PRP-T) 06/15/1992, 2,1991,04/15 IPV 11/14/1995, 3,1991,04/15 Influenza Split 05/14/1999,03/14/1999 Influenza, injectable, trivalent 05/14/1999,02/15 MMR 03/15/1995,06/15/1992 Meningococcal Conj (Menactra) MCV4P 02/10/2006 Td (adult) (MBL), 2 Lf tetan us toxoid, PF, adsorbed 09/28/2003 Tdap 01/26/2009 Varicella 02/10/2008,01/02/1996 Family History Relation Name Status Comments Brother Alive Brother: ADD Father Alive Father: Alive a nd well Mother Alive Mother: Alive a nd well Social History Tobacco Use Types Packs/Day Years Used Date Smoking Tobacco: Never Assessed Sex and Gender Information Value Date Recorded Sex Assigned at Not on file Legal Sex Male 4:46 PM EDT Gender Identity Not on file Sexual Orientation Not on file Last Filed Vital Signs Vital Sign Reading Time Taken Comments Blood Pressure 112/70 09/06/2010 12:00 AM EDT Pulse - - Temperature 36.4 ??C (97.5 ??F) 03/27/2010 12:00 AM E DT Respiratory Rate - - Oxygen Saturation - - Inhaled Oxygen Concentration - - Weight 66.2 kg (146 lb) 09/06/2010 12:00 AM EDT Height 185.4 cm (6' 1 ) 09/06/2010 12:00 AM EDT Body Mass Index 19.26 09/06/2010 12:00 AM EDT Plan of Treatment Health Maintenance Due Date Last Done Comments DTaP,Tdap,and Td Vaccines (7 - Td or Tdap) 01/26/2019 01/26/2009, 09/28/2003, 11/14/1995, Additional history exists Influenza Vaccines (#1) 2024 05/14/19 99, 05/14/1999, 03/14/1999, Additional history exists COVID-19 Vaccine ( - season) 2024 HIB Vaccines Completed 06/15/1992, 07/18, 1991, Additional history exists MMR Vaccines Completed 03/15/1995, 06/15/1992 IPV Vaccines Completed 11/14/1995, 08/16, 1991, Additional history exists Hepatitis B Vaccines Completed 03/07/1997, 03/15/1996, 01/14/1996 Meningococcal Vaccine Aged Out 02/10/2006 No jessie sherry eligible based on patient's age to complete this topic Varicella Vaccines Completed 02/10/2008, 01/02/1996 HPV Vaccines Aged Out No longer eligi ble based on patient's age to complete this topic Hepatitis A Vaccines Aged Out No long er eligible based on patient's age to complete this topic Men B Vaccine Aged Out No longer elig ible based on patient's age to complete this topic Pneumococcal Vaccine Aged Out No long er eligible based on patient's age to complete this topic Care Teams Head Sampler Relationship Specialty Start Date End Date Barbara Reynoso MD PCP - General 01/24/17
--- NOTE | 2024-08-02 14:33 | A.OFFPC_ITS ---
Vital Signs 08/02/24 14:34 Height 6 ft 2 in Weight 187 lb BMI 24.0 BP 110/66 Blood Pressure Location Lt brachial Position Sitting Pulse 70 Pulse Source Pulse Oximeter Temp 97.1 F Temp Source Temporal Artery Scan Pulse Oximetry (%) 98 Oxygen Delivery Method Room Air Intake Visit Reasons: pe Intake Note: Patient is here today for a physical. Advertising Layout Worker Required: No Yarn Rewinder: Present Accompanied by: children Allergies pollen extracts [POLLEN] Allergy (Mild, Verified 08/03/24 22:38) RUNNY NOSE, IRRITATED EYES, SNEEZING Medication List - Last Reconciled 08/03/24 by CARIDAD Villafuerte dextroamphetamine-amphetamine 15 mg ER (Adderall XR) 15 mg PO QAM 30 days fluticasone propionate 50 mcg/actuation 1 spray intranasal DAILY multivitamin 1 tab PO DAILY pantoprazole 40 mg PO DAILY Tobacco use date assessed: 08/02/24 Dental Screening Dental Screen Date: 08/02/24 Did you have a dental visit in the last 12 months?: Yes Did you have a dental problem in the last 6 months where you did not have access to dental care?: No Was dental information given to patient?: Patient has dentist HPI pe HPI Details Dentist: up to date Eye: 2 years-will make an appt Snellen: Right: Left: Corrected vision: STI screening: Colonoscopy: 2-3 years ago-reports that he check in with GI intermittently Pap Smer:n/a Flu: Given in office COVID: up to date Tdap: up to date Diet: regular Exercise: active at work The patient is a 34y/o male presenting for annual physical reports that he is feeling great He lost some weight after his divorce and that he was stressed out, but now he is enjoying the weight that he lost He denies sob, chest pain, heart palpitation or dizziness Denies abdominal pain or changes in bowel habits He denies dysuria, but reports that during ejaculation his right scrotum hurts [facility] Medical History Allergic rhinitis GERD (gastroesophageal reflux disease) Internal hemorrhoids Right knee pain Overweight (BMI 25.0-29.9) Surgical History Hx of colonoscopy (~06/07/21) History of vasectomy Family History Father Stroke Mother Cancer Brother In good health Son In good health Daughter In good health Social History Housing: House Alcohol intake: current Alcohol intake frequency: a few times a month Alcohol type: wine Patient Tobacco Use Status: Former Tobacco user e-Cigarette/Vaping Use: Never Used Second Hand Smoke Exposure: Yes service: No Current occupational status: employed 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 1. Little interest or pleasure in doing things: not at all 2. Feeling down, depressed, or hopeless: not at all 3. Trouble falling or staying asleep, or sleeping too much: not at all 4. Feeling tired or having little energy: not at all 5. Poor appetite or overeating: not at all 6. Feeling bad about yourself - or that you are a failure or have let yourself or your family down: not at all 7. Trouble concentrating on things, such as reading the newspaper or watching television: not at all 8. Moving or speaking so slowly that other people could have noticed. Or the opposite - being so fidgety or restless that you have been moving around a lot more than usual: not at all 9. Thoughts that you would be better off or of hurting yourself in some way: not at all Total score: 0 Depression Screening Interpretation: Negative Depression Screening Done: Yes 21965 - PHQ-9 Billing: Yes Source: Developed by Drs. Chencho Smith, Ashley Mccollum, Ilia Méndez and colleagues, with an educational samantha from [email or web address]. Thrive Questionnaire Date Thrive assessed: 08/02/24 I am a: Patient What is your living situation today?: I have a steady place to live Within the past 12 months, did the food you bought not last and you didn't have the money to get more?: I choose not to answer this question Within the past 12 months, did you worry whether your food would run out before you got money to buy more?: I choose not to answer this question Do you have trouble paying for medicines?: I choose not to answer this question Do you have trouble getting transportation to medical appointments?: I choose not to answer this question Do you have trouble paying your heating and electricity bill?: I choose not to answer this question Do you have trouble taking care of your child, family member or friend?: I choose not to answer this question Do you have trouble with day-to-day activities such as bathing, preparing meals, shopping, managing finances, etc.?: I choose not to answer this question Are you currently unemployed and looking for a job?: I choose not to answer this question Are you interested in more education?: I choose not to answer this question Please select the resources that you would like help with: None Currently or been in a relationship where the following occur: I choose not to answer THRIVE Score: 0 AUDIT C Alcohol Use Questionnaire (AUDIT-C) 1. How often do you have a drink containing alcohol?: Monthly or less 2. How many drinks containing alcohol do you have on a typical day when you are drinking?: 3 or 4 3. How often do you have six or more drinks on one occasion?: Never Total Score: 2 ANGEL-7 AMB Questionnaire ANGEL-7 Date ANGEL - 7 assessed: 08/02/24 Feeling nervous, anxious, or on edge: 0 = Not at all Not being able to stop or control worryin = Not at all Worrying too much about different things: 0 = Not at all Trouble relaxin = Not at all Being so restless that it is hard to sit still: 0 = Not at all Becoming easily annoyed or irritable: 0 = Not at all Feeling afraid as if something awful might happen: 0 = Not at all Total ANGEL-7 score (0-4 normal; 5-9 mild; 10-14 moderate; 15-21 severe): 0 Source: Developed by Drs. Chencho Smith, Ashley Mccollum, Ilia Méndez and colleagues, with an educational samantha from [employer]. ANGEL-7 Assessment Billing ANGEL-7 Assessment Tool: ANGEL-7 Assessment 84762 Review of Systems Const Details: Denies chills, Denies fatigue, Denies fever(s), Denies headache(s) and Denies weakness HEENT Denies change in vision, Denies dizziness, Denies headache(s), Denies hearing loss, Denies nasal congestion, Denies sinus pain, Denies sinus pressure and D enies sore throat Card Denies chest pain, Denies lightheadedness, Denies dyspnea and Denies other (palpitations) Resp Denies cough, Denies dyspnea and Denies wheezing GI Denies abdominal pain, Denies melena, Denies hematochezia, Denies change in bowel habits, Denies dyspepsia and Denies nausea Denies hematuria and Denies dysuria other: reports that during ejaculation his right scrotum hurts Musc Denies abnormal gait, Denies myalgias, Denies arthralgias, Denies numbness and Denies tingling Skin/Breast Denies rash, Denies unusual bruising and Denies wounds Neuro Denies abnormal gait, Denies dizziness, Denies headache(s), Denies memory loss, Denies numbness, Denies Sensory deficit (Neuro), Denies tingling and Denies weakness Psych Denies anxiety, Denies depression and Denies memory loss Endo Denies cold intolerance, Denies fatigue, Denies heat intolerance, Denies polydipsia and Denies polyuria Michael/Lymph Denies easy bleeding and Denies easy bruising Aller/Immun Denies wheezing Physical exam (Primary Care) Vital Signs: Last Vital Signs Temp 97.1 F 08/02/24 14:34 Pulse 70 08/02/24 14:34 BP 110/66 08/02/24 14:34 Pulse Ox 98 08/02/24 14:34 Oxygen Delivery Method Room Air 08/02/24 14:34 BMI result Body Mass Index 24.0 Tobacco/Smoking Status: Tobacco use Status Tobacco use date assessed 08/02/24 08/02/24 14:41 Patient Tobacco Use Status Former Tobacco user 08/02/24 14:41 e-Cigarette/Vaping Use Never Used 08/02/24 14:41 PHQ-9: PHQ-9 Score PHQ-9: Total score 0 08/02/24 14:57 Depression Screening Interpretation: Negative Thrive Assessment: Date of Thrive Assessment Date Thrive assessed 08/02/24 08/02/24 14:41 Currently or been in a relationship where the following occur: I choose not to answer Const Other: General: no acute distress, well developed, alert and awake Nutritional Appearance: well nourished Orientation/consciousness: patient oriented x3 [facility] Head: Yes normocephalic and Yes atraumatic Ears: hearing grossly normal bilaterally and TM's normal bilaterally General nose exam: Normal external nose present and Normal nares present Mouth: Normal oral and palatal mucosa present and moist mucous membranes Teeth and gingiva: dentition normal Throat: Yes oropharynx normal Eyes Pupils: Equal, round and reactive pupils present and Pupil accommodation reflex normal EOM: EOMs intact bilaterally Neck Neck: Yes normal visual inspection, Yes no lymphadenopathy and Yes trachea midline Thyroid: Thyroid normal Carotids: no bruits Lymphatic: no lymphadenopathy noted Chest Chest palpation & inspection: normal inspection of the chest Resp Effort & Inspection: normal respiratory effort Auscultation: clear to auscultation bilaterally Cardio Rate: regular rate Rhythm: regular rhythm Heart sounds: S1 normal heart sound present, S2 normal heart sound present, no gallops, no murmurs and no rubs Bruits: no abdominal aortic bruits and no carotid bruits GI Palpation (GI): No Abdominal aortic bruit present, Soft to palpation, nontender, No hepatosplenomegaly present and No Rebound tenderness present Auscultation: normal bowel sounds General: Yes no CVA tenderness Back/Spine/Pelvis Back: no CVA tenderness Cervical Spine: cervical ROM normal and No Cervical spine tenderness Thoracic/Lumbar Spine: thoraco-lumbar ROM normal, No pain with thoraco-lumbar ROM, No thoracic spinal tenderness and No lumbar spinal tenderness Skin General: warm and dry. Normal skin color. Normal skin turgor Lesions: no lesions Rashes: no rashes Trauma: no lacerations or abrasions Wounds: no wounds Nails: normal Neuro General: patient oriented x3, gait normal and CN's II-XI intact bilaterally Cranial nerves: Yes Equal, round and reactive pupils present Cognition (Neuro): normal cognition Gait exam (Neuro): Normal gait present Motor exam (neuro): 5/5 motor strength present throughout Sensory Exam: No Sensory deficit (Neuro) Deep tendon reflexes (DTR's): Right patellar reflex intensity grade: 2+ and Left patellar reflex intensity grade: 2+ Extrem General: Yes normal to inspection, No edema and No calf tenderness Psych Appearance: grossly normal Affect: normal affect Attitude: cooperative Thought process: Normal thought process present Office Procedures Flu Questionnaire Does the patient have a severe egg allergy?: No Does the patient have severe life threatening allergies?: No Does the patient have a fever or illness today?: No Has the patient ever had Guillain-Donnelly Syndrome?: No Has the patient ever had any past reaction to a flu shot?: No Immunizations Fluarix Triv [id number] (PF) 45 mcg (15 mcg x 3)/0.5 mL IM syringe Performing Provider: CARIDAD Villafuerte [facility] Administered by: FELIX Gonzalez on 08/02/24 14:57 Dose Route Admin Location Dispensed Lot Number Expiration Date [facility] Distance Education Faculty Liaison 0.5 mL IM Right Deltoid 0.5 mL [id number] 12/13/24 [id number] [employer] VIS Given Date VIS Provided VIS Publication Date 08/02/24 Single Vaccine 21 Eligibility Eligibility Date Funding Source Not [facility] Eligible 08/02/24 Private Coding Level of Care Code Est Pt Prev Care 18-39y(60003) Diagnoses Annual physical exam Z00.00 Gastroesophageal reflux disease without esophagitis K21.9 Esophagitis presence: without esophagitis ADHD (attention deficit hyperactivity disorder) evaluation Z13.39 Non-seasonal allergic rhinitis, unspecified trigger J30.89 Allergic rhinitis trigger: unspecified Allergic rhinitis seasonality: non-seasonal Right knee pain, unspecified chronicity M25.561 Chronicity: unspecified Overweight (BMI 25.0-29.9) E66.3 Scrotal pain N50.82 Screen for STD (sexually transmitted disease) Z11.3 Additional Codes ANGEL-7 Assessment Billing - ANGEL-7 Assessment Tool: ANGEL-7 Assessment 33018 ([id number]) PHQ-9 - 66380 - PHQ-9 Billing: Yes ([id number]) Assessment & Plan Assessment & Plan (1) Annual physical exam: Code(s): Z00.00 - Encounter for general adult medical examination without abnormal findings Category: Medical Plan: The patient is update on vaccinations and screenings. No recent blood works, la bs ordered for the patient to complete as soon as possible. (2) GERD (gastroesophageal reflux disease): Code(s): K21.9 - Gastro-esophageal reflux disease without esophagitis Category: Medical Qualifiers: Esophagitis presence: without esophagitis Qualified Code(s): K21.9 - Gastro-esophageal reflux disease without esophagitis Plan: Reinforced dietary restriction Continue pantoprazole 40 mg daily (3) ADHD (attention deficit hyperactivity disorder) evaluation: Code(s): Z13.39 - Encounter for screening examination for other mental health and behavioral disorders Category: Medical Plan: Continue Adderall XR 15 mg q.a.m. (4) Allergic rhinitis: Code(s): J30.9 - Allergic rhinitis, unspecified Category: Medical Qualifiers: Allergic rhinitis trigger: unspecified Allergic rhinitis seasonality: non-seasonal Qualified Code(s): J30.89 - Other allergic rhinitis Plan: Fluticasone propionate 50 mcg/actuation 1 spray intranasally daily (5) Right knee pain: Code(s): M25.561 - Pain in right knee Category: Medical Qualifiers: Chronicity: unspecified Qualified Code(s): M25.561 - Pain in right knee Plan: Stable. Reports that the patient resolved after losing weight (6) Overweight (BMI 25.0-29.9): Code(s): E66.3 - Overweight Category: Medical Plan: resolved: lost weight BMI 24 (7) Scrotal pain: Code(s): N50.82 - Scrotal pain Category: Medical Plan: The reports that during ejaculation his right scrotum hurts. STD tests ordered and a scrotal US ordered as well (8) Screen for STD (sexually transmitted disease): Code(s): Z11.3 - Encounter for screening for infections with a predominantly sexual mode of transmission Category: Medical Plan: STD tests ordered Orders: Orders Influenza [id number] Immunization 08/02/24 Z23 - Encounter for immunization Comprehensive Kiana. Panel Fast 08/02/24 J30.89 - Other allergic rhinitis, K21.9 - Gastro-esophageal reflux disease without esophagitis, Z00.00 - Encounter for general adult medical examination without abnormal findings UA CC w/rflx Micro + Cult 08/02/24 J30.89 - Other allergic rhinitis, K21.9 - Gastro-esophageal reflux disease without esophagitis, Z00.00 - Encounter for general adult medical examination without abnormal findings TSH reflex Free T4 08/02/24 J30.89 - Other allergic rhinitis, K21.9 - Gastro- esophageal reflux disease without esophagitis, Z00.00 - Encounter for general adult medical examination without abnormal findings Vitamin D 25-OH Total 08/02/24 J30.89 - Other allergic rhinitis, K21.9 - Gastro-esophageal reflux disease without esophagitis, Z00.00 - Encounter for general adult medical examination without abnormal findings CT NG by PCR 08/02/24 Z11.3 - Encounter for screening for infections with a predominantly sexual mode of transmission HIV Ab/Ag 08/02/24 Z11.3 - Encounter for screening for infections with a predominantly sexual mode of transmission Complete Blood Count Auto Diff 08/02/24 J30.89 - Other allergic rhinitis, K21.9 - Gastro-esophageal reflux disease without esophagitis, Z00.00 - Encounter for general adult medical examination without abnormal findings Lipid Panel 08/02/24 J30.89 - Other allergic rhinitis, K21.9 - Gastro- esophageal reflux disease without esophagitis, Z00.00 - Encounter for general adult medical examination without abnormal findings Glucose Fasting 08/02/24 J30.89 - Other allergic rhinitis, K21.9 - Gastro- esophageal reflux disease without esophagitis, Z00.00 - Encounter for general adult medical examination without abnormal findings Syphilis Screen 08/02/24 Z11.3 - Encounter for screening for infections with a predominantly sexual mode of transmission
[2024-08-02 14:34] VITALS: BP 110/66; PULSE 70; TEMP 36.2; O2SAT 98; BMI 24.0
== END 2024-08-02 15:14 | disposition home or self-care (01) ==
PROVIDERS: PCP Internal Medicine
DX: Z23 Encounter for immunization (principal)

== ENCOUNTER → 2024-08-02 14:29 | Outpatient (BNVA) | payer BC, SELFPAY | PROVIDERS: PCP Internal Medicine | DX: Z00.00 Encounter for general adult medical examination without abnormal findings (principal); Z23 Encounter for immunization; K21.9 Gastro-esophageal reflux disease without esophagitis; J30.89 Other allergic rhinitis; M25.561 Pain in right knee; E66.3 Overweight; Z68.24 Body mass index [BMI] 24.0-24.9, adult; N50.82 Scrotal pain; Z79.899 Other long term (current) drug therapy | CPT/HCPCS: 90471; 90656; 96127 ==

== ENCOUNTER 2024-08-11 08:54 | Outpatient (REF) | payer BC, SELFPAY ==
[2024-08-11 09:07] LABS: MANUAL DIFF FLAG NO
[2024-08-11 09:40] LABS: Basophils Absolute Auto 0.1 X10*3/uL (0.0-0.2); Basophils Percent Auto 0.9 % (0-2); Eosinophils Absolute Auto 0.1 X10*3/uL (0.0-0.4); Eosinophils Percent Auto 2.6 % (0-4); Hematocrit 43.6 % (42.0-52.0); Hemoglobin 15.9 g/dl (14.0-18.0); Imm Gran Abs Auto 0.02 X10*3/uL (0.00-0.03); Imm Gran Pct Auto 0.4 % (0.0-0.4); Lymphocytes Absolute Auto 1.7 X10*3/uL (1.2-4.9); Lymphocytes Percent Auto 31.2 % (20-40); Mean Corpuscular HGB Conc 36.5 g/dl (31.0-36.0); Mean Corpuscular Hemoglobin 32.4 pg (27.0-33.0); Mean Corpuscular Volume 88.8 fL (80.0-98.0); Mean Platelet Volume 9.7 fL (9.4-12.4); Monocytes Absolute Auto 0.5 X10*3/uL (0.1-1.2); Monocytes Percent Auto 9.8 % (2-11); Neutrophils Percent Auto 55.1 % (45-73); Platelet Count 232 X10*3/uL (160-400); Red Blood Count 4.91 X10*6/uL (4.60-5.80); Red Cell Distribution Width 11.9 % (11.0-16.0); White Blood Count 5.4 X10*3/uL (4.8-10.8)
[2024-08-11 09:47] LABS: Appearance Urine Clear; Color Urine Yellow; Glucose Urine UA Negative (Negative); Leukocyte Esterase Urine Negative (Negative); Nitrite Urine Negative (Negative); PH 6.5 (5.0-9.0); Specific Gravity - Urine >= 1.030 (1.005-1.025); Urine Blood Negative (Negative); Urine Ketones Negative (Negative); Urine Protein Trace mg/dL (Neg-Trace)
[2024-08-11 10:18] LABS: Alanine Aminotransferase 26 U/L (0-40); Albumin Level 4.3 g/dL (3.5-5.0); Alkaline Phosphatase 64 U/L (39-117); Anion Gap 10 (12-20); Aspartate Amino Transferase 33 U/L (5-37); Bilirubin Total 0.7 mg/dL (0.0-1.0); Blood Urea Nitrogen 24 mg/dL (9-16); Calcium 9.2 mg/dL (8.4-10.2); Carbon Dioxide 27 mmol/L (22-29); Chloride 108 mmol/L (96-108); Cholesterol 145 mg/dL (<200); Estimated Glomerular Filt Rate > 60; Glucose Fasting 102 mg/dL (60-99); HDL Cholesterol 48 mg/dL (>40); LDL Cholesterol Calculated 90 mg/dL (<100); Potassium 3.8 mmol/L (3.3-5.1); Sodium 141 mmol/L (135-145); Total Protein 7.1 g/dL (6.5-8.0); Triglycerides 36 mg/dL (<150)
[2024-08-11 10:25] LABS: HIV AB/AG Nonreactive (Nonreactive); HIV Num 1 0.08 S/CO (0.00-0.99)
[2024-08-11 10:27] LABS: Syphilis Screen Nonreactive (Nonreactive)
[2024-08-11 10:38] LABS: TSH reflex Free T4 1.23 uIU/mL (0.32-4.0); Vitamin D 25-OH Total 38.2 ng/mL (>30)
== END 2024-08-11 08:55 | disposition home or self-care (01) ==
LOC: HO.LAB 08:54
DX: Z00.00 Encounter for general adult medical examination without abnormal findings (principal); K21.9 Gastro-esophageal reflux disease without esophagitis; J30.89 Other allergic rhinitis; Z11.3 Encounter for screening for infections with a predominantly sexual mode of transmission
CPT/HCPCS: 36415; 80053; 80061; 81003; 82306; 84443; 85025; 86780; 87389

== ENCOUNTER 2024-09-29 13:01 | Outpatient (REF) | payer BC, SELFPAY ==
--- NOTE | ~2024-09-29 | US_ITS ---
CLINICAL HISTORY: N50.82 - Scrotal pain US scrotum with Doppler Comparison: None Technique: Real time sonographic imaging, including color-flow imaging and spectral analysis, was performed by the extract puller. Multiple chemical sales representative static images were saved for review. Findings: Right testicle normal size and echotexture, 4.4 x 2.1 x 3.3 cm. Normal color flow and spectral tracing. Left testicle normal size and echotexture, 5.3 x 2.1 x 3.1 cm. Normal color flow and spectral tracing. No significant epididymal abnormalities. No hydroceles or varicoceles. Impression: No significant abnormality. This document has been electronically signed by: Shiv Flores MD on 09/29/2024 22:06:06
--- OUTSIDE RECORDS SUMMARY | 2024-09-29 15:27 | XMS_ITS | Encounter Summary ---
Author Organization [facility] Address [address] [place] [address] Phone Care Team Providers Care Technical Solutions Engineer Name Role Phone Barbara Reynoso MD Primary Care Provider Unava ilable Encounter Details Date Type Department Care Team (Late st Contact Info) Description 01/30/2017 Conversion Encounter [facility] - [address] [address] Social History Tobacco Use Types Packs/Day Years [...] on filedocumented in this encounter Care Teams Technical Solutions Engineer Relationship Specialty Start Date End Date Barbara Reynoso MD PCP - General 01/24/17 documented as of this encounter
--- OUTSIDE RECORDS SUMMARY | 2024-09-29 15:27 | XMS_ITS | Clinical Summary ---
Author Organization [facility] Address [address] [place] [id number] Phone Care Team Providers Care Credit Products Officer Name Role Phone Barbara Reynoso MD Primary [...] age to complete this topic Care Teams Credit Products Officer Relationship Specialty Start Date End Date Barbara Reynoso MD PCP - General 01/24/17
--- OUTSIDE RECORDS SUMMARY | 2024-09-29 15:27 | XMS_ITS | Encounter Summary ---
Author Organization [facility] Address [address] [place] [address] Phone Care Team Providers Care Director Social Service Name Role Phone Barbara Reynoso MD Primary Care Provider Unava ilable Encounter Details Date Type Department Care Team (Late st Contact Info) Description 12/11/2012 Documentation [facility] [place] [facility] [address] [place] [address] Family Medicine, Physician [address] [place] [address] Social History Tobacco Use Types Packs/Day Years [...] on filedocumented in this encounter Care Teams Director Social Service Relationship Specialty Start Date End Date Barbara Reynoso MD PCP - General 01/24/17 documented as of this encounter
== END 2024-09-29 13:02 | disposition home or self-care (01) ==
LOC: HO.US 13:01
PROVIDERS: PCP Internal Medicine
DX: N50.82 Scrotal pain (principal)
CPT/HCPCS: 76870

== ENCOUNTER → 2024-09-29 13:07 | Outpatient (BNV) | payer BC, SELFPAY | PROVIDERS: PCP Internal Medicine; Visit Provider Radiology Diagnostic Radiology | DX: N50.82 Scrotal pain (principal) | CPT/HCPCS: 76870 ==